=== PATIENT | female | born 1935 | race Hispanic/Latino ===

== ENCOUNTER 2020-09-11 18:07 | Inpatient (IN) | payer OTHER ==
[2020-09-11 19:12] LABS: Absolute Lymphocytes (CBC) 0.3 K/uL (0.7-4.9); Basophils % 0.2 % (0-1.3); Hematocrit 27.9 % (36.0-45.0); Lymphocytes % 1.8 % (15.3-44.8); MPV 9.4 fL (7.6-11.3); RBC Red Blood Cell Count 3.03 M/uL (3.86-4.86)
[2020-09-11 19:34] LABS: Ferritin 109.2 ng/mL (8-388)
[2020-09-11 19:40] LABS: Bilirubin Direct 0.1 mg/dL (0-0.2); Bilirubin Total 0.6 mg/dL (0.2-1.0); Potassium 4.8 mmol/L (3.5-5.1)
[2020-09-11 19:41] LABS: Albumin 2.9 g/dL (3.4-5.0); Protein, Total 6.9 g/dL (6.4-8.2)
[2020-09-11 19:44] LABS: Urine Blood 2+ (NEG); Urine Glucose NEGATIVE (NEG); Urine Protein 3+ (NEG); Urine pH 5.5 (5.0-7.0)
[2020-09-11 19:54] LABS: Urine Bacteria >50 /HPF (<20)
--- NOTE | 2020-09-11 20:04 | EDPHYS ---
Physician Documentation [facility] Name: Sasha Pate Age: 85 yrs Sex: Female : 1935 Arrival Date: 09/11/2020 Time: 18:11 Bed 4 Private MD: ED Physician Daniel Flores HPI: 09/11 18:58 This 85 yrs old Female presents to ER via Wheelchair with complaints of jr8 Abdominal Pain, Vomiting. 18:58 The patient presents with Nausea and Vomiting. Onset: The symptoms/episode jr8 began/occurred yesterday. Patient reports with Nausea and vomiting since yesterday. Her LALO reports she has extensive Vascular Hx with stent placements, HTN, DM, decreased renal function. Patient reports taking an Advil yesterday to treat a THORNE and then beginning to vomit. . Historical: - Allergies: 18:24 No Known Allergies; aa5 - PMHx: 18:24 Diabetes - NIDDM; Hypertension; Hyperlipidemia; PVD; Hypothyroidism; Renal aa5 Insufficiency; Sacral fractures; UTI; Sepsis; - PSHx: 18:24 Cholecystectomy; Left Femoral Artery Stent; Renal Artery Stent; Back Surgery; Cecal aa5 Volvulus sx; cataracts; - Immunization history:: Client reports receiving the 1st dose of the Covid vaccine. - Social history:: Smoking status: Patient reports the use of cigarette tobacco products, 5 cigarettes a day. ROS: 19:00 Cardiovascular: Negative for chest pain, palpitations, and edema, Respiratory: Negative jr8 for shortness of breath, cough, wheezing, and pleuritic chest pain, Neuro: Negative for headache, weakness, numbness, tingling, and seizure. 19:00 Abdomen/GI: Positive for nausea and vomiting. 19:00 Back: Positive for flank pain, on the left. 19:00 Skin: Positive for Exam: 19:03 Cardiovascular: Regular rate and rhythm with a normal S1 and S2. No gallops, murmurs, jr8 or rubs. Normal PMI, no JVD. No pulse deficits. Respiratory: Lungs have equal breath sounds bilaterally, clear to auscultation and percussion. No rales, rhonchi or wheezes noted. No increased work of breathing, no retractions or nasal flaring. MS/ Extremity: Pulses equal, no cyanosis. Neurovascular intact. Full, normal range of motion. Neuro: Awake and alert, GCS 15, oriented to person, place, time, and situation. Cranial nerves II-XII grossly intact. Motor strength 5/5 in all extremities. Sensory grossly intact. Cerebellar exam normal. Normal gait. 19:03 Abdomen/GI: Inspection: abdomen appears normal, Bowel sounds: active, all quadrants, Palpation: abdomen is soft and non-tender, in all quadrants. 19:03 Back: pain, that is mild, of the left mid back, CVA tenderness, is noted on the left. Vital Signs: 18:20 BP 110 / 44; Pulse 89; Resp 18 S; Temp 99.2(O); Pulse Ox 95% on R/A; Weight 60.78 kg aa5 (R); Height 5 ft. 6 in. (167.64 cm) (R); 19:21 BP 130 / 58; Pulse 80; Resp 17; Temp 98.3; Pulse Ox 100% ; rr5 20:30 BP 125 / 80; Pulse 85; Resp 17; Pulse Ox 98% ; rr5 21:50 BP 118 / 61; Pulse 70; Resp 15; Pulse Ox 98% ; Pain 8/10; rr5 22:56 BP 113 / 55; Pulse 75; Resp 16; Pulse Ox 98% ; rr5 18:20 Body Mass Index 21.63 (60.78 kg, 167.64 cm) aa5 MDM: 18:33 Patient medically screened. jr8 19:04 Data reviewed: vital signs, nurses notes, lab test result(s). Data interpreted: Cardiac jr8 monitor: rate is 89 beats/min, rhythm is regular, Pulse oximetry: on room air is 95 %. 20:03 Counseling: I had a detailed discussion with the patient and/or guardian regarding: the jr8 historical points, exam findings, and any diagnostic results supporting the discharge/admit diagnosis, lab results, radiology results, the need for further work-up and treatment in the hospital. 09/11 18:30 Order name: Basic Metabolic Panel; Complete Time: 19:45 tw4 09/11 18:30 Order name: CBC with Diff; Complete Time: 20:34 tw4 09/11 18:30 Order name: Hepatic Function; Complete Time: 19:45 tw4 09/11 18:30 Order name: Lipase; Complete Time: 19:45 tw4 09/11 18:34 Order name: Urine Microscopic Only; Complete Time: 20:03 [facility] 09/11 18:57 Order name: TIBC [facility] 09/11 18:57 Order name: Ferritin [facility] 09/11 18:57 Order name: Iron Level [facility] 09/11 18:58 Order name: Transferrin Sat/Iron Binding; Complete Time: 19:45 [facility] 09/11 18:58 Order name: Ferritin; Complete Time: 19:45 [facility] 09/11 19:13 Order name: Glucose, Ancillary Testing; Complete Time: 19:45 [facility] 09/11 19:28 Order name: Urine Dipstick--Ancillary (enter results); Complete Time: 19:46 [facility] 09/11 19:56 Order name: Uric Acid; Complete Time: 20:59 [facility] 09/11 18:30 Order name: IV Saline Lock; Complete Time: 18:53 [facility] 09/11 18:30 Order name: Labs collected and sent; Complete Time: 18:53 [facility] 09/11 18:34 Order name: Urine Dipstick-Ancillary (obtain specimen); Complete Time: 19:50 [facility] 09/11 19:56 Order name: US Rp Exam Complete; Complete Time: 20:59 [facility] 09/11 19:56 Order name: Pth,Intact; Complete Time: 21:00 [facility] 09/11 20:11 Order name: COVID-19 : Document "Date of Symptom Onset" if Symptomatic. [facility] 09/11 20:18 Order name: Urine Culture [facility] 09/11 20:28 Order name: CBC Smear Scan; Complete Time: 20:34 [facility] 09/11 20:45 Order name: CONS Physician Consult [facility] 09/11 22:22 Order name: SARS-COV-2 RT PCR; Complete Time: 22:23 [facility] Administered Medications: 20:05 Drug: NS 0.9% 500 ml Route: IV; Rate: bolus; Site: right antecubital; rr5 20:40 Follow up: Response: No adverse reaction; IV Status: Completed infusion; IV Intake: rr5 500ml 20:05 Drug: Zofran (Ondansetron) 4 mg Route: IVP; Site: right antecubital; rr5 21:05 Follow up: Response: No adverse reaction rr5 20:07 Drug: Rocephin (cefTRIAXone) 1 grams Route: IV; Rate: calculated rate; Site: right rr5 antecubital; 20:30 Follow up: Response: No adverse reaction; IV Status: Completed infusion; IV Intake: [id number] 20:38 Drug: NS 0.9% 1000 ml Route: IV; Rate: 75 ml/hr; Site: right antecubital; ea 22:36 Follow up: Response: No adverse reaction; IV Status: Completed infusion ea 22:10 Drug: Tylenol 1000 mg Route: PO; rr5 23:00 Follow up: Response: No adverse reaction ea Disposition: 09/12 18:29 Co-signature as Attending Physician, Daniel Flores MD I agree with the assessment and tw4 plan of care. Disposition: 09/11/20 20:03 Hospitalization ordered by Richard Govea for Inpatient Admission. Preliminary diagnosis are Urinary tract infection, site not specified, Acute kidney failure. - Bed requested for Telemetry/MedSurg (Inpatient). - Status is Inpatient Admission. ea - Condition is Stable. - Problem is new. - Symptoms have improved. Signatures: Dispatcher [employer] EDNY Chantal Lozoya RN Diandra Velasquez RN RN aa5 Navjot Daugherty PA PA jr8 Esther Cunha RN RN ea Wadley, Terrence, MD MD tw4 Denis Andres RN RN rr5 Corrections: (The following items were deleted from the chart) 09/11 18:58 18:58 Ferritin ordered. [facility]NY EDMS 18:58 18:58 Ferritin ordered. [facility] EDNY 22:32 20:03 Hospitalization Ordered by Richard Govea MD for Inpatient Admission. Preliminary mw diagnosis is Urinary tract infection, site not specified; Acute kidney failure. Bed requested for Telemetry/MedSurg (Inpatient). Status is Inpatient Admission. Condition is Stable. Problem is new. Symptoms have improved. jr8 23:09 22:32 09/11/2020 20:03 Hospitalization Ordered by Richard Govea MD for Inpatient ea Admission. Preliminary diagnosis is Urinary tract infection, site not specified; Acute kidney failure. Bed requested for Telemetry/MedSurg (Inpatient). Status is Inpatient Admission. Condition is Stable. Problem is new. Symptoms have improved. mw
--- NOTE | 2020-09-11 20:04 | ER ---
Nurse's Notes [facility] Name: Sasha Pate Age: 85 yrs Sex: Female : 1935 Arrival Date: 09/11/2020 Time: 18:11 Bed 4 Private MD: Diagnosis: Urinary tract infection, site not specified;Acute kidney failure Presentation: 09/11 18:20 Chief complaint: Patient states: abd discomfort and vomiting today. Pt states "I aa5 haven't eaten since yesterday". Coronavirus screen: nausea, vomiting. Ebola Screen: Patient negative for fever greater than or equal to 101.5 degrees Fahrenheit, and additional compatible Ebola Virus Disease symptoms. Initial Sepsis Screen: Does the patient meet any 2 criteria? No. Patient's initial sepsis screen is negative. Does the patient have a suspected source of infection? No. Patient's initial sepsis screen is negative. Risk Assessment: Do you want to hurt yourself or someone else? Patient reports no desire to harm self or others. Onset of symptoms was August 2020. 18:20 Method Of Arrival: Wheelchair aa5 18:20 Acuity: DEMI 3 aa5 Historical: - Allergies: 18:24 No Known Allergies; aa5 - PMHx: 18:24 Diabetes - NIDDM; Hypertension; Hyperlipidemia; PVD; Hypothyroidism; Renal aa5 Insufficiency; Sacral fractures; UTI; Sepsis; - PSHx: 18:24 Cholecystectomy; Left Femoral Artery Stent; Renal Artery Stent; Back Surgery; Cecal aa5 Volvulus sx; cataracts; - Immunization history:: Client reports receiving the 1st dose of the Covid vaccine. - Social history:: Smoking status: Patient reports the use of cigarette tobacco products, 5 cigarettes a day. Screenin:54 Abuse screen: Denies threats or abuse. Denies injuries from another. Nutritional ph screening: No deficits noted. Tuberculosis screening: No symptoms or risk factors identified. Fall Risk None identified. Assessment: 18:53 General: Appears in no apparent distress. Behavior is calm, cooperative, appropriate ph for age, Denies fever. Pain: Complains of pain in abdomen. Neuro: Level of Consciousness is awake, alert, obeys commands, Oriented to person, place, time, situation. Cardiovascular: Capillary refill < 3 seconds in bilateral fingers Patient's skin is warm and dry. Respiratory: Airway is patent Respiratory effort is even, unlabored, Respiratory pattern is regular, symmetrical. GI: Reports nausea, vomiting. Derm: Skin is healthy with good turgor, Skin is pink, warm \\T\\ dry. Musculoskeletal: Circulation, motion, and sensation intact. Range of motion: intact in all extremities. 19:40 General: Appears in no apparent distress. comfortable, Behavior is calm, cooperative, rr5 appropriate for age. Neuro: Level of Consciousness is awake, alert, obeys commands, Oriented to person, place, time. Cardiovascular: Capillary refill < 3 seconds Patient's skin is warm and dry. Respiratory: Airway is patent Respiratory effort is even, unlabored, Respiratory pattern is regular, symmetrical. GI: Abdomen is round non-distended, Abd is soft and non tender Reports lower abdominal pain, upper abdominal pain, nausea, vomiting. : No signs and/or symptoms were reported regarding the genitourinary system. EENT: No signs and/or symptoms were reported regarding the EENT system. Derm: Skin is intact, is healthy with good turgor, Skin is pink, warm \\T\\ dry. Musculoskeletal: Capillary refill < 3 seconds. 20:14 Reassessment: Patient appears in no apparent distress at this time. Patient is alert, rr5 oriented x 3, equal unlabored respirations, skin warm/dry/pink. hospitalist at bedside. 21:15 Reassessment: Patient appears in no apparent distress at this time. Patient is alert, rr5 oriented x 3, equal unlabored respirations, skin warm/dry/pink. awaiting for covid result for admission. 22:10 Reassessment: complaints of headache, ED provider aware with order made and carried out.rr5 22:10 Pain: Complains of pain in head Pain currently is 8 out of 10 on a pain scale. Quality rr5 of pain is described as aching, Pain began gradually. 23:08 Reassessment: Patient and/or family updated on plan of care and expected duration. Pain ea level reassessed. Patient is alert, oriented x 3, equal unlabored respirations, skin warm/dry/pink. Discharge instruction given to patient, verbalized the understanding of instruction. Pt left ED ambulatory tolerating well. Patient states feeling better. Vital Signs: 18:20 BP 110 / 44; Pulse 89; Resp 18 S; Temp 99.2(O); Pulse Ox 95% on R/A; Weight 60.78 kg aa5 (R); Height 5 ft. 6 in. (167.64 cm) (R); 19:21 BP 130 / 58; Pulse 80; Resp 17; Temp 98.3; Pulse Ox 100% ; rr5 20:30 BP 125 / 80; Pulse 85; Resp 17; Pulse Ox 98% ; rr5 21:50 BP 118 / 61; Pulse 70; Resp 15; Pulse Ox 98% ; Pain 8/10; rr5 22:56 BP 113 / 55; Pulse 75; Resp 16; Pulse Ox 98% ; rr5 18:20 Body Mass Index 21.63 (60.78 kg, 167.64 cm) aa5 ED Course: 18:11 Patient arrived in ED. mr 18:20 Arm band placed on. aa5 18:21 Triage completed. aa5 18:33 Navjot Daugherty PA is PHCP. jr8 18:33 Daniel Flores MD is Attending Physician. jr8 18:54 Patient has correct armband on for positive identification. Bed in low position. Call ph light in reach. Side rails up X 1. Pulse ox on. NIBP on. Door closed. Noise minimized. 19:03 Esther Cunha, RN is Primary Nurse. ea 19:11 Initial lab(s) drawn, by me, sent to lab. Inserted saline lock: 22 gauge in right 5 antecubital area, using aseptic technique. 19:12 Ferritin Sent. 5 19:12 Transferrin Sat/Iron Binding Sent. 5 19:12 Iron Level Sent. 5 19:12 Ferritin Sent. 5 19:12 TIBC Sent. 5 19:12 Basic Metabolic Panel Sent. 5 19:12 CBC with Diff Sent. 5 19:12 Hepatic Function Sent. mh5 19:13 Lipase Sent. mh5 20:03 Richard Govea MD is Hospitalizing Provider. jr8 20:36 US Rp Exam Complete In Process Unspecified. EDMS 20:40 COVID swab sent to lab. rr5 22:36 No provider procedures requiring assistance completed. Patient admitted, IV remains in ea place. Administered Medications: 20:05 Drug: NS 0.9% 500 ml Route: IV; Rate: bolus; Site: right antecubital; rr5 20:40 Follow up: Response: No adverse reaction; IV Status: Completed infusion; IV Intake: rr5 500ml 20:05 Drug: Zofran (Ondansetron) 4 mg Route: IVP; Site: right antecubital; rr5 21:05 Follow up: Response: No adverse reaction rr5 20:07 Drug: Rocephin (cefTRIAXone) 1 grams Route: IV; Rate: calculated rate; Site: right rr5 antecubital; 20:30 Follow up: Response: No adverse reaction; IV Status: Completed infusion; IV Intake: [id number] 20:38 Drug: NS 0.9% 1000 ml Route: IV; Rate: 75 ml/hr; Site: right antecubital; ea 22:36 Follow up: Response: No adverse reaction; IV Status: Completed infusion ea 22:10 Drug: Tylenol 1000 mg Route: PO; rr5 23:00 Follow up: Response: No adverse reaction ea Intake: 20:30 IV: 10ml; Total: 10ml. rr5 20:40 IV: 500ml; Total: 510ml. rr5 Outcome: 20:03 Decision to Hospitalize by Provider. jrJennifer 22:36 Instructed on the need for admit. ea 23:07 Admitted to Med/surg accompanied by tech, via stretcher, room 206, with chart, Report ea called to Receiving nurse 23:07 Condition: stable 23:09 Patient left the ED. ea Signatures: Dispatcher [employer] EDMO [employer] Yolette TangDiandra, RN RN [email or web address] Navjot Daugherty PA PA jrKellie Griffin, Jonelle Moore RN, ph Esther Pierce RN RN ea Roque, Raymond RN RN rr5
[2020-09-11] MEDS ORDERED: NA CHLORIDE 0.9% 1,000 ML ONE (20:19)
[2020-09-11] MEDS ORDERED: CEFTRIAXONE/SWI 1gm 1 GM/10 ML SYR ONE (20:19)
[2020-09-11] MEDS ORDERED: ONDANSETRON 4 MG/2 ML VIAL ONE (20:19)
[2020-09-11 20:28] LABS: Blood Morphology Comment NOT SEEN (NOT SEEN); Platelet Estimate ADEQ; White Blood Cell Scan OK (OK)
--- NOTE | 2020-09-11 20:57 | RAD REPORT ---
EXAM DESCRIPTION: US - Renal Ultrasound-Complete - 09/11/2020 8:36 pm CLINICAL HISTORY: Acute renal failure superimposed over chronic renal failure COMPARISON: None. FINDINGS: The right kidney measures 8 cm with an increased echotexture. The left kidney measures 10 cm with an increased echotexture. A 2.6 centimeters cyst Hydronephrosis is not seen. The bladder is decompressed and poorly evaluated IMPRESSION: Increased renal echotexture consistent with parenchymal disease
--- NOTE | 2020-09-11 21:18 | P.HP ---
Certification for Inpatient Patient admitted to: Inpatient With expected LOS: >2 Midnights Patient will require the following post-hospital care: None Practitioner: I am a practitioner with admitting privileges, knowledge of patient current condition, hospital course, and medical plan of care. Services: Services provided to patient in accordance with Admission requirements found in Title 42 Section 412.3 of the Code of Federal Regulations <Osbaldo Pereira - Last Filed: 09/12/20 02:39> Patient History Date of Service: 09/12/20 Reason for admission: acute on chronic renal insufficiency, UTI History of Present Illness: Ms. Pate is an 85 yo F with DM, HTN, HLD, PVD w/ femoral artery stent, h/o renal artery stent, hypothyroidism, and bilateral sacral, ischial ramus and tuberosity fractures here today for acute on chronic renal insufficiency and UTI. Last summer she was admitted to the hospital for E.coli UTI and sepsis and at this time had a GFR 28. On Monday, she had a GFR of 17. At 11pm last night she took advil for her back pain, and then began to have nausea and vomiting. She reports abdominal pain, poor appetite, weakness, and headache. She denies fever, dysuria, frequency, urgency, hematuria, diarrhea and constipation. GFR now 12. BUN 79. Cr 3.64. Glucose 220. Hemoglobin 9.1, Hematocrit 27.9. WBC 15.6. alk phos 203.urine positive for 1+ leukocytes, 2+ blood, 10-20 WBCs, bacteria. Renal ultrasound - no hydronephrosis, increased renal echotexture with parenchymal disease. - Past Medical/Surgical History -: NIDDM -: hypertension -: hyperlipidemia -: PVD -: hypothyroidism -: renal insufficiency -: bilateral sacral, ishcial ramus and tuberosity fractures -: UTI/sepsis (Ecoli) 2019 -: tubal -: galbladder surgery -: left femoral artery stent, balloon -: renal artery stent -: back surgery -: bilateral inguinal hernia repair -: bilateral cataract -: cecal volvulus surgery - Family History Mother -: Hypertension, Diabetes Father -: Hypertension, Diabetes - Social History Smoking Status: Light Tobacco smoker (1-9 cigarettes/day) Counseled patient to stop smoking for: less than 10 minutes Smoking therapy provided: Yes Patient receptive to therapy: No Alcohol use: No CD- Drugs: No Caffeine use: No Place of Residence: Home <Osbaldo Pereira - Last Filed: 09/12/20 02:39> Date of Service: 09/12/20 <GoveaRichard pardozal - Last Filed: 09/14/20 08:43> Allergies No Known Allergies Allergy (Unverified 09/11/20 21:44) Home Medications: Cefdinir [Omnicef] 300 mg PO DAILY #7 capsule 09/12/20 Levothyroxine Sodium [Levothyroxine] 50 mg PO DAILY 09/12/20 Nifedipine [Nifedipine ER] 30 mg PO BEDTIME 09/12/20 Pioglitazone HCl 45 mg PO DAILY 09/12/20 Pravastatin Sodium 10 mg PO DAILY 09/12/20 Sodium Bicarbonate 650 mg PO BID 09/12/20 Review of Systems General: Weakness, As per HPI Eyes: Unremarkable ENT: Unremarkable Respiratory: Unremarkable Cardiovascular: Unremarkable Gastrointestinal: Nausea, Vomiting, Abdominal Pain, As per HPI Genitourinary: As per HPI Musculoskeletal: Back Pain, As per HPI Integumentary: Unremarkable Neurological: Unremarkable Lymphatics: Unremarkable <Osbaldo Pereira - Last Filed: 09/12/20 02:39> Physical Examination - Vital Signs Temperature: 99.2 F Blood Pressure: 110/44 Pulse: 89 Respirations: 18 Pulse Ox (%): 95 - Physical Exam General: Alert, In no apparent distress, Oriented x3, Cooperative HEENT: Atraumatic, Normocephalic, PERRLA, Mucous membr. moist/pink, EOMI, Sclerae nonicteric Neck: Supple, 2+ carotid pulse no bruit, JVD not distended, No Thyromegaly, No LAD Respiratory: Clear to auscultation bilaterally, Normal air movement Cardiovascular: No edema, Normal pulses, Regular rate/rhythm, Normal S1 S2, No gallops, No rubs, No murmurs Capillary refill: <2 Seconds Gastrointestinal: Normal bowel sounds, Soft and benign, Non-distended, No ascites, No masses, No rebound, No guarding, Other (tenderness over left flank) Musculoskeletal: No clubbing, No swelling, No contractures, No erythema, No tenderness, No warmth Integumentary: No rashes, No breakdown, No significant lesion, No tenderness/swelling, No erythema, No warmth, No cyanosis Neurological: Normal speech, Normal strength at 5/5 x4 extr, Normal tone, Sensation intact, Cranial nerves 3-12 intact, Normal affect - Studies Laboratory Data (last 24 hrs) 09/11/20 18:50: Uric Acid 8.0 H 09/11/20 18:50: WBC 15.60 H, Hgb 9.1 L, Hct 27.9 L, Plt Count 198 09/11/20 18:50: Sodium 137, Potassium 4.8, BUN 79 H, Creatinine 3.64 H, Glucose 220 H, Total Bilirubin 0.6, AST 12 L, ALT 13, Alkaline Phosphatase 203 H, Lipase 85 <Osbaldo Pereira - Last Filed: 09/12/20 02:39> - Studies Microbiology Data (last 24 hrs): 09/11/20 19:20 Clean Catch Urine [place] Count - Final >100,000 CFU/ML. 09/11/20 19:20 Clean Catch Urine - Final Enterobacter Aerogenes <Richard Govea - Last Filed: 09/14/20 08:43> Assessment and Plan - Problems (Diagnosis) (1) Renal insufficiency Current Visit: Yes Status: Acute Plan: -nephrology consulted, likely candidate for dialysis now -renal ultrasound: Increased renal echotexture consistent with parenchymal disease -Summer GFR 28, Monday GFR 17, GFR now 12 -Cr 3.64, BUN 79, uric acid 8, PTH 101 -vitamin D 125, and urine albumin:Cr pending -gentul fluid hydration, NS 75cc/hr -takes sodium bicarb 10g 1/2 BID at home (2) UTI (urinary tract infection) Current Visit: Yes Status: Acute Plan: -urinalysis positive for blood, leukocytes, WBC, bacteria -ceftriaxone IV daily -urine culture and colony count pending Qualifiers: Urinary tract infection type: site unspecified Hematuria presence: without hematuria Qualified Code(s): N39.0 - Urinary tract infection, site not specified (3) Type 2 diabetes mellitus Current Visit: Yes Status: Acute Plan: mild sliding scale and q6hr BG checks Qualifiers: Diabetes mellitus 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 hold medications until nephrology recs given. Qualifiers: Hypertension type: essential hypertension Qualified Code(s): I10 - Essential (primary) hypertension (5) Hyperlipidemia Current Visit: Yes Status: Acute Plan: stable continue to monitor Qualifiers: Hyperlipidemia type: other hyperlipidemia Qualified Code(s): E78.49 - Other hyperlipidemia; E78.4 - Other hyperlipidemia (6) Peripheral vascular disease Current Visit: Yes Status: Acute Plan: stable, continue to monitor (7) Hypothyroidism Current Visit: Yes Status: Acute Plan: stable, continue to monitor. Qualifiers: Hypothyroidism type: other Qualified Code(s): E03.8 - Other specified hypothyroidism (8) Anemia of chronic disease Current Visit: Yes Status: Chronic Plan: -Hgb 9.1, HCt 27.9 -takes ferrous sulfate at home -currently stable Discharge Plan: Home Plan to discharge in: 48 Hours - Advance Directives Does patient have a Living Will: No Does patient have a Durable POA for Healthcare: No - Code Status/Comfort Care Code Status Assessed: Yes (full code) Critical Care: No Time Spent Managing Pts Care (In Minutes): 70 <Osbaldo Pereira - Last Filed: 09/12/20 02:39> Date of Service: 09/13/20 Chart reviewed and agree with plan of care as mentioned above <Richard Govea - Last Filed: 09/14/20 08:43>
[2020-09-11] MEDS ORDERED: ACETAMINOPHEN 500 MG TAB ONE (22:51)
[2020-09-11] MEDS: INSULIN -REGULAR HUMAN 50 UNIT/0.5 ML ML SQ SCH (23:15)
[2020-09-11 23:37] VITALS: BMI 21.8
[2020-09-12] MEDS: NA CHLORIDE 0.9% 1,000 ML IV SCH ×3 (00:28→18:38)
[2020-09-12 06:45] LABS: Absolute Lymphocytes (CBC) 0.5 K/uL (0.7-4.9); Basophils % 0.2 % (0-1.3); Hematocrit 24.1 % (36.0-45.0); Lymphocytes % 2.9 % (15.3-44.8); MPV 9.4 fL (7.6-11.3); RBC Red Blood Cell Count 2.61 M/uL (3.86-4.86)
[2020-09-12 06:56] LABS: Urine Appearance CLOUDY; Urine Bilirubin NEGATIVE (NEG); Urine Blood 2+ (NEG); Urine Color YELLOW; Urine Glucose NEGATIVE (NEG); Urine Protein 2+ (NEG); Urine Specific Gravity 1.015 (1.005-1.030); Urine Urobilinogen 0.2 mg/dL (0.2-1.0); Urine pH 5.5 (5.0-7.0)
[2020-09-12 06:58] LABS: Urine Microscopic Reflex ORDER UMIC
[2020-09-12 07:05] LABS: Albumin 2.5 g/dL (3.4-5.0); Bilirubin Total 0.4 mg/dL (0.2-1.0); Potassium 5.1 mmol/L (3.5-5.1); Protein, Total 6.1 g/dL (6.4-8.2)
[2020-09-12 07:10] LABS: Thyroid Stimulating Hormone 0.701 uIU/mL (0.360-3.740); Uric Acid 7.8 mg/dL (2.6-6.0)
[2020-09-12 07:27] LABS: Urine Bacteria >50 /HPF (<20)
[2020-09-12] MEDS ORDERED: CEFTRIAXONE/SWI 1gm 1 GM/50 ML SYR IV SCH (09:00)
[2020-09-12] MEDS: HEPARIN 5000 UNIT/ML 1 ML VIAL SQ SCH ×2 (09:27→20:13)
[2020-09-12] MEDS: INSULIN -REGULAR HUMAN 50 UNIT/0.5 ML ML SQ SCH ×4 (09:27→20:14)
[2020-09-12] MEDS: CEFTRIAXONE/SWI 1gm 1 GM/10 ML SYR IV SCH (09:27)
--- NOTE | 2020-09-12 15:30 | P.DS ---
Discharge Date: 09/12/20 Disposition: ROUTINE DISCHARGE Discharge Condition: GOOD Reason for Admission: acute on chronic renal insufficiency, UTI Vital Signs/Physical Exam: Temp Pulse Resp BP Pulse Ox 98.4 F 68 20 114/56 L 98 09/12/20 12:00 09/12/20 12:00 09/12/20 12:00 09/12/20 12:00 09/12/20 12:00 General: Alert, In no apparent distress, Oriented x3 Laboratory Data at Discharge: WBC 18.50 K/uL (4.3-10.9) H D 09/12/20 06:19 Hgb 8.1 g/dL (12.0-15.0) L 09/12/20 06:19 Hct 24.1 % (36.0-45.0) L 09/12/20 06:19 Plt Count 153 K/uL (152-406) D 09/12/20 06:19 Sodium 138 mmol/L (136-145) 09/12/20 06:19 Potassium 5.1 mmol/L (3.5-5.1) 09/12/20 06:19 BUN 84 mg/dL (7-18) H 09/12/20 06:19 Creatinine 3.95 mg/dL (0.55-1.3) H 09/12/20 06:19 Glucose 177 mg/dL (74-106) H 09/12/20 06:19 Uric Acid 7.8 mg/dL (2.6-6.0) H 09/12/20 06:19 Total Bilirubin 0.4 mg/dL (0.2-1.0) 09/12/20 06:19 AST 15 U/L (15-37) 09/12/20 06:19 ALT 14 U/L (12-78) 09/12/20 06:19 Alkaline Phosphatase 172 U/L (45-117) H 09/12/20 06:19 Lipase 85 U/L (73-393) 09/11/20 18:50 Home Medications: Cefdinir [Omnicef] 300 mg PO DAILY #7 capsule 09/12/20 Levothyroxine Sodium [Levothyroxine] 50 mg PO DAILY 09/12/20 Nifedipine [Nifedipine ER] 30 mg PO BEDTIME 09/12/20 Pioglitazone HCl 45 mg PO DAILY 09/12/20 Pravastatin Sodium 10 mg PO DAILY 09/12/20 Sodium Bicarbonate 650 mg PO BID 09/12/20 New Medications: Cefdinir [Omnicef] 300 mg PO DAILY #7 capsule Physician Discharge Instructions: OK TO DC IV AND DC HOME FOLLOW-UP WITH PCP IN 1-2 WEEKS FOLLOW-UP NEPHROLOGY IN 1-[address] OLEA AT [phone] IF ANY QUESTIONS REGARDING HOSPITAL STAY RETURN TO THE ER IF SYMPTOMS WORSENS Diet: Renal Activity: Fall precautions Followup: OOT,OOT [Primary Care Provider] -
--- NOTE | 2020-09-12 17:42 | P.CNS ---
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 pt was not taking NSAID or had any contrast exposure recently or took Abx in ER 12. BUN 79. Cr 3.64. Glucose 220. Hemoglobin 9.1, Hematocrit 27.9. WBC 15.6. alk phos 203.urine positive for 1+ leukocytes, 2+ blood, 10-20 WBCs, bacteria. Renal ultrasound - no hydronephrosis, increased renal echotexture with parenchymal disease. Review of Systems: Head and Neck: No red eye. No ear pain. GI: nausea and diarrhea improved : No polyuria. No dysuria. No hematuria. 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 Cardiovascular: denied chest pain or palpitation Endocrine: No polydipsia. Skin: No rash. Neuro: denied neuropathy. Musculoskeletal: denied joint pain Physical exam general: AAOX3, NAD , obese Neck; Supple, No elevated JVD hear: RRR, normal S1,2 no murmur or rub Chest: CTAB, no rales or wheezes Abdomen: Soft , Nt Extremities No edema or ulcer Petar on CKD IV vs progressive CKD UA with many RBC , hav proteinuria cont IVF USL No hydro renal biopsy on Monday if cr cont to trend up then pt might to initiate renal replacement therapy this admission avoid NSAID an contarst F/U serology W/U DM SSI HTN Cont current meds cont to hold Irbesartan, lasix and HCTZ anemia of chronic disease will give epogen X1 will sned for anemia W/U F/U SPEP/UPEP total time spent 65min Allergies No Known Allergies Allergy (Unverified 09/11/20 21:44) Home Medications: Cefdinir [Omnicef] 300 mg PO DAILY #7 capsule 09/12/20 Levothyroxine Sodium [Levothyroxine] 50 mg PO DAILY 09/12/20 Nifedipine [Nifedipine ER] 30 mg PO BEDTIME 09/12/20 Pioglitazone HCl 45 mg PO DAILY 09/12/20 Pravastatin Sodium 10 mg PO DAILY 09/12/20 Sodium Bicarbonate 650 mg PO BID 09/12/20 - Past Medical/Surgical History -: NIDDM -: hypertension -: hyperlipidemia -: PVD -: hypothyroidism -: renal insufficiency -: bilateral sacral, ishcial ramus and tuberosity fractures -: UTI/sepsis (Ecoli) 2020 -: tubal -: galbladder surgery -: left femoral artery stent, balloon -: renal artery stent -: back surgery -: bilateral inguinal hernia repair -: bilateral cataract -: cecal volvulus surgery - Family History Mother Medical History: Hypertension, Diabetes Father Medical History: Hypertension, Diabetes - Social History Alcohol use: No CD- Drugs: No Caffeine use: No Place of Residence: Home Physical Examination Temp Pulse Resp BP Pulse Ox 98.4 F 68 20 114/56 L 98 09/12/20 12:00 09/12/20 12:00 09/12/20 12:00 09/12/20 12:00 09/12/20 12:00 Laboratory Data (last 24 hrs) 09/11/20 18:50: Uric Acid 8.0 H 09/11/20 18:50: WBC 15.60 H, Hgb 9.1 L, Hct 27.9 L, Plt Count 198 09/11/20 18:50: Sodium 137, Potassium 4.8, BUN 79 H, Creatinine 3.64 H, Glucose 220 H, Total Bilirubin 0.6, AST 12 L, ALT 13, Alkaline Phosphatase 203 H, Lipase 85
[2020-09-12] MEDS ORDERED: EPOETIN 4,000 UNIT/ML VIAL IV ONE (18:00)
[2020-09-12] MEDS ORDERED: EPOETIN ALFA-EPBX 10,000 UNIT/ML VIAL ONE (18:25)
[2020-09-12] MEDS: EPOETIN ALFA-EPBX 10,000 UNIT/ML VIAL SQ SCH (19:02)
[2020-09-12] MEDS: SODIUM BICARB 325 MG TAB PO SCH (20:12)
[2020-09-12] MEDS: ACETAMINOPHEN 500 MG TAB PO PRN (20:12)
[2020-09-12] MEDS: NIFEDIPINE XL 30 MG TABLET PO SCH (20:14)
[2020-09-13] MEDS: NA CHLORIDE 0.9% 1,000 ML IV SCH ×2 (01:55→09:30)
[2020-09-13 06:00] LABS: Urine Protein/Creatinine Ratio 1.53 ratio (<0.15)
[2020-09-13] MEDS: INSULIN -REGULAR HUMAN 50 UNIT/0.5 ML ML SQ SCH ×4 (07:30→20:29)
[2020-09-13 08:35] LABS: Ferritin 120.8 ng/mL (8-388); Folic Acid, (Folate) 10.2 ng/mL (3.1-17.5)
[2020-09-13] MEDS ORDERED: LEVOTHYROXINE SOD 0.05 MG TABLET PO SCH ×2 (09:00→10:45)
[2020-09-13] MEDS: CEFTRIAXONE/SWI 1gm 1 GM/10 ML SYR IV SCH (09:28)
[2020-09-13] MEDS: HEPARIN 5000 UNIT/ML 1 ML VIAL SQ SCH ×2 (09:29→20:29)
[2020-09-13] MEDS: SODIUM BICARB 325 MG TAB PO SCH ×2 (09:29→20:28)
[2020-09-13] MEDS: ATORVASTATIN 10 MG TAB PO SCH (09:29)
[2020-09-13 11:04] LABS: Bilirubin Total 0.3 mg/dL (0.2-1.0); Potassium 4.8 mmol/L (3.5-5.1); Protein, Total 5.6 g/dL (6.4-8.2)
--- NOTE | 2020-09-13 12:48 | P.PN ---
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 pt was not taking NSAID or had any contrast exposure recently or took Abx in ER 12. BUN 79. Cr 3.64. Glucose 220. Hemoglobin 9.1, Hematocrit 27.9. WBC 15.6. alk phos 203.urine positive for 1+ leukocytes, 2+ blood, 10-20 WBCs, bacteria. Renal ultrasound - no hydronephrosis, increased renal echotexture with parenchymal disease. Today Cr up to 4.4 will hold IVF will start dialysis tomorrow for worsening renal function and to reduce risk of uremic bleeding will arrange for Biopsy after HD Physical exam general: AAOX3, NAD , obese Neck; Supple, No elevated JVD hear: RRR, normal S1,2 no murmur or rub Chest: CTAB, no rales or wheezes Abdomen: Soft , Nt Extremities No edema or ulcer Petar on CKD IV vs progressive CKD IV worsening renal function is possibly due to RPGN vs porgressive CKD UA with many RBC , hav proteinuria cont IVF US: No hydro will start dialysis tomorrow for worsening renal function and to reduce risk of uremic bleeding will arrange for Biopsy after HD DM SSI HTN Cont current meds cont to hold Irbesartan, lasix and HCTZ anemia of chronic disease will give epogen X1 will start IV iron F/U SPEP/UPEP total time spent 45min Physical Examination - Vital Signs Temperature: 98.9 F Blood Pressure: 121/57 Pulse: 73 Respirations: 16 Pulse Ox (%): 95 - Studies Microbiology Data (last 24 hrs): 09/11/20 19:20 Clean Catch Urine [place] Count - Final >100,000 CFU/ML. 09/11/20 19:20 Clean Catch Urine - Final Enterobacter Aerogenes
[2020-09-13] MEDS: SOD FERRIC GLUC COMPLX/SUCROSE 125 MG in NA CHLORIDE 0.9% 100 ML IV SCH (14:01)
[2020-09-13 14:32] LABS: Hematocrit 23.9 % (36.0-45.0); RBC Red Blood Cell Count 2.56 M/uL (3.86-4.86)
[2020-09-13 14:33] LABS: Absolute Lymphocytes (CBC) 0.5 K/uL (0.7-4.9); Basophils % 0.3 % (0-1.3); Lymphocytes % 3.3 % (15.3-44.8); MPV 10.2 fL (7.6-11.3)
[2020-09-13] MEDS ORDERED: MORPHINE 2 MG/ML SYR IV PRN (15:37)
[2020-09-13] MEDS: CODEINE 30MG/APAP 300MG TAB PO PRN (15:50)
[2020-09-13] MEDS: EPOETIN ALFA-EPBX 10,000 UNIT/ML VIAL SQ SCH (19:30)
[2020-09-13] MEDS: ACETAMINOPHEN 500 MG TAB PO PRN (20:28)
[2020-09-13] MEDS: NIFEDIPINE XL 30 MG TABLET PO SCH (20:52)
[2020-09-14] MEDS: LEVOTHYROXINE SOD 0.05 MG TABLET PO SCH (05:19)
[2020-09-14 06:32] LABS: Albumin 1.9 g/dL (3.4-5.0); Bilirubin Total 0.2 mg/dL (0.2-1.0); Potassium 4.5 mmol/L (3.5-5.1); Protein, Total 5.3 g/dL (6.4-8.2)
[2020-09-14 06:40] LABS: Absolute Lymphocytes (CBC) 0.6 K/uL (0.7-4.9); Basophils % 0.3 % (0-1.3); Hematocrit 22.2 % (36.0-45.0); Lymphocytes % 5.3 % (15.3-44.8); MPV 10.3 fL (7.6-11.3); RBC Red Blood Cell Count 2.39 M/uL (3.86-4.86)
[2020-09-14 07:30] LABS: Blood Morphology Comment NOT SEEN (NOT SEEN); Platelet Estimate ADEQ
[2020-09-14] MEDS: INSULIN -REGULAR HUMAN 50 UNIT/0.5 ML ML SQ SCH ×4 (07:30→21:00)
[2020-09-14] MEDS: CEFTRIAXONE/SWI 1gm 1 GM/10 ML SYR IV SCH (08:34)
[2020-09-14] MEDS: HEPARIN 5000 UNIT/ML 1 ML VIAL SQ SCH ×2 (08:35→21:15)
[2020-09-14] MEDS: ATORVASTATIN 10 MG TAB PO SCH (08:35)
--- NOTE | 2020-09-14 08:47 | P.PN ---
Subjective Date of Service: 09/13/20 Subjective: No new changes, No C/O voiced patient is having some abdominal pain. Patient discharge was held yesterday. I was not made aware until I saw the patient on the list this morning. Patient will be worked up with Nephrology. Anticipate dialysis With dialysis catheter placement tomorrow and possible biopsy Monday Review of Systems 10-point ROS is otherwise unremarkable Physical Examination - Vital Signs Temperature: 98.5 F Blood Pressure: 120/57 Pulse: 69 Respirations: 20 Pulse Ox (%): 92 - Physical Exam General: Alert, In no apparent distress, Oriented x3 Respiratory: Clear to auscultation bilaterally, Normal air movement Cardiovascular: Regular rate/rhythm, Normal S1 S2 Gastrointestinal: Normal bowel sounds, Tenderness Musculoskeletal: No tenderness Integumentary: No rashes Neurological: Normal speech, Normal tone, Normal affect Lymphatics: No axilla or inguinal lymphadenopathy - Studies Microbiology Data (last 24 hrs): 09/11/20 19:20 Clean Catch Urine [place] Count - Final >100,000 CFU/ML. 09/11/20 19:20 Clean Catch Urine - Final Enterobacter Aerogenes Medications List Reviewed: Yes Assessment & Plan - Problems (Diagnosis) (1) ESRD (end stage renal disease) Current Visit: Yes Status: Acute (2) Abdominal pain Current Visit: Yes Status: Acute (3) Hyperlipidemia Current Visit: Yes Status: Acute Qualifiers: Hyperlipidemia type: other hyperlipidemia Qualified Code(s): E78.49 - Other hyperlipidemia; E78.4 - Other hyperlipidemia (4) Hypertension Current Visit: Yes Status: Acute Qualifiers: Hypertension type: essential hypertension Qualified Code(s): I10 - Essential (primary) hypertension (5) Hypothyroidism Current Visit: Yes Status: Acute Qualifiers: Hypothyroidism type: other Qualified Code(s): E03.8 - Other specified hypothyroidism (6) Peripheral vascular disease Current Visit: Yes Status: Acute (7) Sacral fracture Current Visit: Yes Status: Acute (8) Type 2 diabetes mellitus Current Visit: Yes Status: Acute Qualifiers: Diabetes mellitus jail insulin use: 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 Diabetes mellitus complication status: with kidney complications Diabetes mellitus complication detail: with chronic kidney disease Chronic kidney disease stage: stage 5, not on chronic dialysis Qualified Code(s): E11.22 - Type 2 diabetes mellitus with diabetic chronic kidney disease; N18.5 - Chronic kidney disease, stage 5 (9) UTI (urinary tract infection) Current Visit: Yes Status: Acute Qualifiers: Urinary tract infection type: site unspecified Hematuria presence: without hematuria Qualified Code(s): N39.0 - Urinary tract infection, site not specified (10) Anemia of chronic disease Current Visit: Yes Status: Chronic - Plan PLAN: 1. plan to arrange for hemodialysis. NPO after midnight. Hemodialysis catheter in the morning. Will start dialyzing Monday and Monday and renal biopsy on Monday. 2. KUB 3. IV abx 4. strict BS and BP control 5. DVT prophylaxis Discharge Plan: Home Plan to discharge in: Greater than 2 days - Advance Directives Does patient have a Living Will: No Does patient have a Durable POA for Healthcare: No - Code Status/Comfort Care Code Status Assessed: Yes Code Status: Full Code Critical Care: No Time Spent Managing PTS Care (In Minutes): 35
--- NOTE | 2020-09-14 08:49 | P.PN ---
Date of Service: 09/12/20 Subjective Patient to be discharged today in outpatient follow-up with Nephrology Review of Systems 10-point ROS is otherwise unremarkable Physical Examination - Vital Signs reviewed - Physical Exam General: Alert, In no apparent distress, Oriented x3 Assessment & Plan - Problems (Diagnosis) (1) ESRD (end stage renal disease) Current Visit: Yes Status: Acute (2) Abdominal pain Current Visit: Yes Status: Acute (3) Hyperlipidemia Current Visit: Yes Status: Acute Qualifiers: Hyperlipidemia type: other hyperlipidemia Qualified Code(s): E78.49 - Other hyperlipidemia; E78.4 - Other hyperlipidemia (4) Hypertension Current Visit: Yes Status: Acute Qualifiers: Hypertension type: essential hypertension Qualified Code(s): I10 - Essential (primary) hypertension (5) Hypothyroidism Current Visit: Yes Status: Acute Qualifiers: Hypothyroidism type: other Qualified Code(s): E03.8 - Other specified hypothyroidism (6) Peripheral vascular disease Current Visit: Yes Status: Acute (7) Sacral fracture Current Visit: Yes Status: Acute (8) Type 2 diabetes mellitus Current Visit: Yes Status: Acute Qualifiers: Diabetes mellitus senior care insulin use: without senior care use Diabetes mellitus complication status: with kidney complications Diabetes mellitus complication detail: with chronic kidney disease Chronic kidney disease stage: stage 5, not on chronic dialysis Qualified Code(s): E11.22 - Type 2 diabetes mellitus with diabetic chronic kidney disease; N18.5 - Chronic kidney disease, stage 5 (9) UTI (urinary tract infection) Current Visit: Yes Status: Acute Qualifiers: Urinary tract infection type: site unspecified Hematuria presence: without hematuria Qualified Code(s): N39.0 - Urinary tract infection, site not specified (10) Anemia of chronic disease Current Visit: Yes Status: Chronic - Plan PLAN: 1. plan was to discharge patient and they will follow up with their transfer clerk in [facility]. Patient will need to get labs repeated. Continue with IV antibiotic therapy. Continue outpatient follow-up as mentioned above. Patient discharge was held and I was not notified on 09/12/20 so this is an addendum progress note.
[2020-09-14] MEDS: SOD FERRIC GLUC COMPLX/SUCROSE 125 MG in NA CHLORIDE 0.9% 100 ML IV SCH (08:59)
[2020-09-14] MEDS ORDERED: SOD FERRIC GLUC COMPLX/SUCROSE 125 MG in NA CHLORIDE 0.9% 100 ML IV SCH (09:00)
[2020-09-14] MEDS: SODIUM BICARB 325 MG TAB PO SCH (09:00)
[2020-09-14 09:16] LABS: Protime INR 0.86
[2020-09-14] MEDS ORDERED: NA CHLORIDE 0.9% 500 ML ONE (10:02)
[2020-09-14] MEDS ORDERED: NA CHLORIDE 0.9% 0 ML ONE (10:04)
[2020-09-14] MEDS ORDERED: LIDOCAINE 1% MPF 30 ML VIAL ONE (10:21)
[2020-09-14] MEDS ORDERED: NS 0.9% VIAL 10 ML ONE (10:21)
[2020-09-14] MEDS ORDERED: NA CHLORIDE 0.9% 100 ML IV ONE (10:22)
[2020-09-14] MEDS ORDERED: FENTANYL CITR 100 MCG/2 ML ONE ×2 (11:05→11:11)
[2020-09-14] MEDS ORDERED: propofoL 200 MG/20 ML VIAL IV ONE ×3 (11:05→11:16)
[2020-09-14] MEDS ORDERED: LIDOCAINE 1% MPF 5 ML VIAL ONE (11:06)
[2020-09-14] MEDS ORDERED: MIDAZOLAM HCL 2 MG/2 ML INJ ONE (11:11)
[2020-09-14] MEDS ORDERED: LIDOCAINE 1% MPF 2 ML AMPULE ONE (11:11)
[2020-09-14] MEDS: HEPARIN 5000 UNIT/ML 1 ML VIAL ONE ×2 (11:33→11:35)
--- NOTE | 2020-09-14 11:39 | P.PN ---
Subjective Date of Service: 09/14/20 Primary Care Provider: Darin Stearns Chief Complaint: acute on chronic renal insufficiency, UTI Subjective: Other (Patient stable today. Patient to have dialysis catheter placed today with dialysis.) Physical Examination - Vital Signs Temperature: 98.5 F Blood Pressure: 120/57 Pulse: 69 Respirations: 20 Pulse Ox (%): 92 - Studies Microbiology Data (last 24 hrs): 09/11/20 19:20 Clean Catch Urine [place] Count - Final >100,000 CFU/ML. 09/11/20 19:20 Clean Catch Urine - Final Enterobacter Aerogenes Medications List Reviewed: Yes Assessment & Plan Discharge Plan: Home Plan to discharge in: 72 Hours Physician Review Additional Text: Physical exam: Patient alert, cooperative. No significant distress noted at bedside. Heart: Regular rate and rhythm Lungs: Clear to auscultation Abdomen: Soft nontender nondistended Extremities: Good range of motion to the upper lower extremities Impression: Acute on chronic renal disease stage 5 now with end-stage renal disease to start hemodialysis UTI, urine culture positive for Enterobacter Hypertension Diabetes mellitus type 2 Hypothyroidism Hyperlipidemia Recent sacral fracture Anemia chronic disease Plan: Acute on chronic renal disease stage 5 now with end-stage renal disease to start hemodialysis: Patient to have dialysis catheter placed today. Suspect dialysis to start thereafter. Patient to have radiology assisted kidney biopsy on Monday. Social work to work on outpatient hemodialysis to be done in [place], [place]. This is for the patient lives. Will discuss with social work msw. Will also discuss with nephrology. Plan of care discussed with patient and daughter who was at present at bedside. UTI, urine culture positive for enterobacter: Will change to oral Augmentin. Will treat for 7 days. Hypertension: Continue blood pressure medication. Blood pressure controlled. Diabetes mellitus type 2: Hold Actos. Will check A1c. Continue Accu-Cheks. Sliding scale in place. Will determine what patient will require discharge. Hypothyroidism: Continue medication Hyperlipidemia: Continue medication Recent sacral fracture: Patient plans to do outpatient physical therapy. Patient able to ambulate well. No need for home health/physical therapy. Anemia of chronic disease: Continue with Epogen. Maintain hemoglobin above 7.0. May require blood transfusion if hemoglobin below 7.0. Time Spent Managing Pts Care (In Minutes): 55
--- NOTE | 2020-09-14 11:45 | P.BOP ---
Preoperative diagnosis: ESRD Postoperative diagnosis: same Primary procedure: 1. Placement of right jugular tunneled Hemodyalisis catheter Secondary procedure: 2. Interpretation of fluoroscopy Other procedure(s): 3. right neck ultrasound Estimated blood loss: <10cc Specimen: none Findings: as above Anesthesia: MAC Complications: None Transferred to: Recovery Room Condition: Good
--- NOTE | 2020-09-14 12:00 | RAD REPORT ---
EXAM DESCRIPTION: RAD - Fluoroscopy <1 Hour - 09/14/2020 11:51 am FINDINGS: There were 8 portable C-arm views submitted from a fluoroscopic assisted placement of a he modialysis catheter. No suspicious or unexpected finding. Fluoro time was 0.4 minutes. Cumulative dose was 6.76 mGy.
--- NOTE | 2020-09-14 12:11 | OP ---
Date of Procedure: 09/14/2020 Surgeon: Gallo Rodriguez MD Preoperative Diagnosis: End-stage renal disease. Postoperative Diagnosis: End-stage renal disease. Procedures Performed: 1.Placement of a right jugular tunneled hemodialysis catheter. 2.Interpretation of fluoroscopy. 3.Right neck ultrasound. Estimated Blood Loss: Less than 10 mL. Anesthesia: MAC plus local. Indications: This is a case of an 85-year-old patient who needs a hemodialysis catheter for hemodial ysis. The benefits, alternatives, and risks were fully explained to the patient and the family which include, but not limited to infection, bleeding, damage to adjacent structures, anesthesia complicat ion, pneumothorax, hemothorax, DVTs, PEs, NV and even . She also understands this may not relie ve any symptoms. She might need more than one surgical intervention. Consent was signed. They also understands this is a temporary catheter. If decision is made to continue hemodialysis, she has to find a vascular surgeon of her preference who do peripheral hemodialysis catheter for more permanent options. She understood. Description Of Procedure: The patient was brought to the operating room, placed in supine position. Anesthesia was done without complication. A time-out was called. Right neck and chest were prepped and draped in sterile fashion. Ultrasound of the neck was done looking at viable compressible jugul ar. After that, the patient was placed in Trendelenburg position. A right neck ultrasound was done once again confirming the findings and then also for placement of a catheter in the right internal ju gular vein at the first attempt. Guidewire was passed through, got into superior vena cava using flu oroscopy. Needle was removed. A small incision was placed in the right upper chest and we tunneled the catheter to meet that incision in the right upper neck. Serial dilators were done until we had i ntroducer sheath under fluoroscopy. Then, after that, the catheter was placed and an introducer munoz th was peeled off. The catheter showed excellent backflow and inflow. The line was secured in place with 3-0 nylon and covered with sterile dressings. The patient tolerated the procedure well. The p atient was sent to recovery in stable condition. The patient will be discharged. The patient will b e moved back to the floor after the x-ray is done. KARLEY/SANDRA Voice ID: [id number] Report ID: [id number]
[2020-09-14] MEDS ORDERED: ONDANSETRON 4 MG/2 ML VIAL ONE (12:17)
[2020-09-14] MEDS ORDERED: MORPHINE 4 MG/ML SYR ONE (12:18)
--- NOTE | 2020-09-14 12:38 | RAD REPORT ---
EXAM DESCRIPTION: RAD - Chest Single View - 09/14/2020 12:18 pm CLINICAL HISTORY: S/P HEMODIALYSIS CATH PLACEMENT COMPARISON: No comparable examination TECHNIQUE: AP portable chest image was obtained 09/14/2020 12:18 pm . FINDINGS: Right-sided double-lumen hemodialysis catheter is in place. Long and short arm of the cath eter are in the mid SVC. There is no pneumothorax. Patient has extensive interstitial lung disease that matches prior imaging. Heart and vasculature are normal. No pleural fluid collection. No acute bony abnormality seen. No acute aortic findings suspec arjun. IMPRESSION: Right-sided hemodialysis catheter in good position. No pneumothorax.
[2020-09-14] MEDS ORDERED: NA CHLORIDE 0.9% 100 ML ONE (14:44)
[2020-09-14] MEDS: ACETAMINOPHEN 500 MG TAB PO PRN (16:35)
--- NOTE | 2020-09-14 16:40 | RAD REPORT ---
EXAM DESCRIPTION: RAD - Abdomen 1 View (KUB) - 09/13/2020 9:05 pm CLINICAL HISTORY: Abdominal pain. COMPARISON: None. TECHNIQUE: Single view supine abdominal radiographs. FINDINGS: Nonobstructive bowel gas pattern. Estimated moderate amount of fecal material in the colon . No evidence of free air by supine technique. Moderate interstitial thickening in the visualized gareth gs. Osteopenia, with vertebroplasty cement at L2. Surgical clips in the left inguinal region. Right u pper abdomen surgical clips. IMPRESSION: 1. Nonobstructive bowel gas pattern. Estimated moderate amount of fecal material in th e colon. 2. Moderate interstitial thickening in the visualized lungs. Electronically signed by: Arielle Faustin MD 09/13/2020 10:22 PM CDT Due to temporary technical issues with the PACS/Fluency reporting system, reports are being signed by the in house radiologists without review as a courtesy to insure prompt reporting. The interpreting radiologist is fully responsible for the content of the report.
[2020-09-14 20:04] LABS: Hematocrit 25.1 % (36.0-45.0)
[2020-09-14] MEDS: CODEINE 30MG/APAP 300MG TAB PO PRN (21:13)
[2020-09-14] MEDS: NIFEDIPINE XL 30 MG TABLET PO SCH (21:14)
[2020-09-14] MEDS: AMOX/CLAV 200 MG/5 ML ORAL SUSP (100 ML BTL) PO SCH (21:14)
[2020-09-14] MEDS ORDERED: BISACODYL E.C. 5 MG TAB PO ONE (21:38)
--- NOTE | 2020-09-15 02:13 | PN ---
Date of Progress Note: 09/14/2020 Chief Complaint: Acute on chronic kidney injury, urinary tract infection. Subjective: The patient is an 85-year-old woman with past medical history of diabetic kidney disease , stage 4 chronic kidney disease. 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 The nimisha ent previously was found to have renal artery stenosis and had a stent placement. She has diabetic k idney disease, hypertension, hyperlipidemia, history of peripheral vascular disease with femoral shazia ry stent. The patient was admitted for vomiting and diarrhea. Labs revealed GFR of 12, creatinine 3 .4. Creatinine level declined. GFR declined from 28 about 6 weeks ago to 12 during this admission. The patient denies nonsteroidal anti-inflammatory medication. Denies antibiotics exposure. Serolog y workup is pending to screen for possible vasculitis. Plan is to schedule biopsy and biopsy can be done on Monday. Renal ultrasound did not show hydronephrosis. There is increased echotexture with parenchymal renal disease. Objective: The patient has a catheter in place. She is complaining of some nausea. She is not in r espiratory distress. Answered few questions. Impression And Plan: 1.Acute on chronic kidney injury. Dialysis has been started today. Worsening of the renal function , possible rapidly progressive glomerulonephritis versus progressive chronic kidney disease. Continu e mild hydration. The patient is admitted for nausea, vomiting, and diarrhea. Workup was started by primary team to rule out C. diff colitis. 2.Continue dialysis to obtain metabolic clearance, control azotemia. Monitor phosphorus level. 3.Patient may need a kidney biopsy during this admission. Serology workup is pending. EB/MODL Voice ID: [id number] Report ID: [id number]
[2020-09-15] MEDS: LEVOTHYROXINE SOD 0.05 MG TABLET PO SCH (05:23)
[2020-09-15 06:31] LABS: Absolute Lymphocytes (CBC) 0.6 K/uL (0.7-4.9); Basophils % 0.4 % (0-1.3); Hematocrit 24.3 % (36.0-45.0); Lymphocytes % 7.6 % (15.3-44.8); MPV 9.8 fL (7.6-11.3); RBC Red Blood Cell Count 2.66 M/uL (3.86-4.86)
[2020-09-15 06:44] LABS: Magnesium 2.2 mg/dL (1.8-2.4); Potassium 4.3 mmol/L (3.5-5.1)
[2020-09-15] MEDS: INSULIN -REGULAR HUMAN 50 UNIT/0.5 ML ML SQ SCH ×4 (07:30→21:00)
[2020-09-15] MEDS: AMOX/CLAV 200 MG/5 ML ORAL SUSP (100 ML BTL) PO SCH ×2 (09:00→21:00)
[2020-09-15] MEDS: SOD FERRIC GLUC COMPLX/SUCROSE 125 MG in NA CHLORIDE 0.9% 100 ML IV SCH (09:00)
[2020-09-15] MEDS: HEPARIN 5000 UNIT/ML 1 ML VIAL SQ SCH ×2 (09:00→21:00)
[2020-09-15] MEDS: ATORVASTATIN 10 MG TAB PO SCH (09:00)
--- NOTE | 2020-09-15 09:11 | P.PN ---
Subjective Date of Service: 09/15/20 Primary Care Provider: Darin Stearns Chief Complaint: acute on chronic renal insufficiency, UTI Subjective: No new changes, Doing well Physical Examination - Vital Signs Temperature: 97.7 F Blood Pressure: 116/59 Pulse: 68 Respirations: 16 Pulse Ox (%): 88 - Studies Medications List Reviewed: Yes Assessment & Plan Discharge Plan: Home Plan to discharge in: 24 Hours Physician Review Additional Text: Physical exam: Patient alert, cooperative. No significant distress noted at bedside. 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 Continue with dialysis. Overall patient improved. No complaints noted. Patient to have radiology assisted kidney biopsy on Monday. Social work to work on outpatient hemodialysis to be done in [place], [place]. This is where the patient lives. Will discuss with social and political studies professor further on plan of care for continue hemodialysis as an outpatient. Will also discuss with nephrology. Plan of care discussed with patient and daughter who was at present at bedside. UTI, urine culture positive for enterobacter: Continue with Augmentin. Will treat for 7 days. Hypertension: Blood pressure well controlled. Continue blood pressure medication. Blood pressure controlled. Diabetes mellitus type 2: Hold Actos. Will check A1c. Continue Accu-Cheks. Sliding scale in place. Will determine what patient will require at discharge. Hypothyroidism: Continue medication Hyperlipidemia: Continue medication Recent sacral fracture: Patient plans to do outpatient physical therapy. Patient able to ambulate well. No need for home health/physical therapy. This was discussed in detail with daughter. Anemia of chronic disease: Continue with Epogen. Maintain hemoglobin above 7.0. May require blood transfusion if hemoglobin below 7.0. Time Spent Managing Pts Care (In Minutes): 55
[2020-09-15 11:42] LABS: HBsAG Nonreactive (Nonreactive)
[2020-09-15] MEDS: EPOETIN ALFA 10,000 UNIT/ML VIAL IV SCH (20:00)
[2020-09-15] MEDS: CODEINE 30MG/APAP 300MG TAB PO PRN (21:21)
[2020-09-15] MEDS: NIFEDIPINE XL 30 MG TABLET PO SCH (21:21)
[2020-09-15] MEDS ORDERED: cloNIDine HCL 0.1 MG TAB PO PRN (22:08)
[2020-09-15 23:55] LABS: Vitamin D 1,25-Dihydroxy Total 13 pg/mL (18-72); Vitamin D,1,25-OH2, D2 <8 pg/mL
--- NOTE | 2020-09-16 00:58 | PN ---
Date of Progress Note: 09/15/2020 Chief Complaint: Acute on chronic kidney injury, urinary tract infection. History Of Present Illness: The patient is an 85-year-old woman with past medical history of diabeti c kidney disease stage 4, chronic kidney disease. The patient was following with alternative medicine practitioner in [facility]. The patient was previously found to have renal artery stenosis and had a stent placement. Sh dmitriy has diabetic kidney disease, hypertension, hyperlipidemia. During this admission, she was found to have urinary tract infection and was started on antibiotics. Recently, GFR dropped from 28 to 12. The patient was initiated on dialysis during this admission. [place] is pending to rule out vasculitis. Review of Systems: Denies fever or chills. Physical Examination: General: The patient is not in acute distress. Lungs: Diminished breath sounds at bases. Heart: S1, S2. Abdomen: Soft, benign. Extremities: No edema. Impression And Plan: 1.Acute on chronic kidney injury, likely the patient has advanced chronic kidney disease. Workup is pending for possible rapidly progressive glomerulonephritis. 2.The patient has urinary tract infection. Continue antibiotics. Re-evaluate urine culture. 3.The patient has significant hyperazotemia. Does not have uremic symptoms. Continue dialysis for metabolic clearance. The patient underwent tunneled dialysis catheter placement during this admissio n. 4.Hypertension. Adjust blood pressure medication for optimal blood pressure control. RORO/MODL Voice ID: [id number] Report ID: [id number]
[2020-09-16] MEDS: ACETAMINOPHEN 500 MG TAB PO PRN ×2 (05:38→20:52)
[2020-09-16] MEDS: LEVOTHYROXINE SOD 0.05 MG TABLET PO SCH (05:38)
[2020-09-16 06:15] LABS: Absolute Lymphocytes (CBC) 0.9 K/uL (0.7-4.9); Basophils % 0.4 % (0-1.3); Hematocrit 25.5 % (36.0-45.0); Lymphocytes % 9.5 % (15.3-44.8); MPV 9.6 fL (7.6-11.3); RBC Red Blood Cell Count 2.81 M/uL (3.86-4.86)
[2020-09-16] MEDS: INSULIN -REGULAR HUMAN 50 UNIT/0.5 ML ML SQ SCH ×4 (07:30→20:45)
[2020-09-16] MEDS ORDERED: DESMOPRESSIN 20 MCG in NA CHLORIDE 0.9% 50 ML IV ONE (08:30)
[2020-09-16] MEDS: AMOX/CLAV 200 MG/5 ML ORAL SUSP (100 ML BTL) PO SCH ×2 (09:00→20:43)
[2020-09-16] MEDS ORDERED: DESMOPRESSIN 4 MCG/ML AMP IV ONE (09:00)
[2020-09-16] MEDS: HEPARIN 5000 UNIT/ML 1 ML VIAL SQ SCH ×2 (09:00→20:49)
[2020-09-16] MEDS ORDERED: FENTANYL CITR 100 MCG/2 ML ONE (09:07)
[2020-09-16] MEDS ORDERED: MIDAZOLAM HCL 2 MG/2 ML INJ ONE (09:07)
[2020-09-16] MEDS ORDERED: NA CHLORIDE 0.9% 500 ML ONE (10:12)
[2020-09-16] MEDS: SOD FERRIC GLUC COMPLX/SUCROSE 125 MG in NA CHLORIDE 0.9% 100 ML IV SCH (12:21)
[2020-09-16 13:00] LABS: Blood Morphology Comment NOT SEEN (NOT SEEN); Platelet Estimate DECR
--- NOTE | 2020-09-16 13:08 | P.PN ---
Subjective Date of Service: 09/16/20 Primary Care Provider: Darin Stearns Chief Complaint: acute on chronic renal insufficiency, UTI Subjective: Doing well Physical Examination - Vital Signs Temperature: 97.5 F Blood Pressure: 158/69 Pulse: 61 Respirations: 16 Pulse Ox (%): 92 - Studies Medications List Reviewed: Yes Assessment & Plan Discharge Plan: Home Plan to discharge in: 24 Hours Physician Review Additional Text: Physical exam: Patient alert, cooperative. No significant distress noted at bedside. 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 She is without significant pain. Doing well at this time. Care discussed with patient and family. Plan of care also discuss with nephrology. Will try to arrange for outpatient dialysis starting as early as Monday in [place] where she is from. Family also wants her to have home health arrange. Will discuss with director of social media marketing. Anticipate possible discharge tomorrow after dialysis. Anticipate no need for dialysis between Monday and Monday or Monday when she is to start in [place]. Will confirm with nephrology. UTI, urine culture positive for enterobacter: Continue with Augmentin. Will treat for 7 days. Hypertension: Blood pressure stable. Continue blood pressure medication. Diabetes mellitus type 2: Restart Actos. Will check A1c. Continue Accu-Cheks. Sliding scale in place. Will determine what patient will require at discharge. Hypothyroidism: Continue medication Hyperlipidemia: Continue medication Recent sacral fracture: Patient plans to do outpatient physical therapy. Patient able to ambulate well. No need for inpatient physical therapy. This was discussed in detail with daughter. Anemia of chronic disease: Continue with Epogen. Maintain hemoglobin above 7.0. May require blood transfusion if hemoglobin below 7.0. History of renal artery stenosis: Overall stable. Will monitor closely. Time Spent Managing Pts Care (In Minutes): 55
--- NOTE | 2020-09-16 13:40 | RAD REPORT ---
EXAM DESCRIPTION: CT - Renal Biopsy CT - 09/16/2020 11:17 am CLINICAL HISTORY: Diabetic renal disease stage IV. Acute renal disease TECHNIQUE: The risks, benefits alternatives to the procedure were explained to the patient and infor med consent obtained Conscious sedation was performed for approximately 30 minutes. A nurse monitored vital signs througho ut the examination 2 milligrams Versed and 75 micrograms fentanyl administered intravenously All CT scans are performed using dose optimization technique as appropriate and may include automated exposure control or mA/KV adjustment according to patient size. The skin, subcutaneous tissue and musculature were anesthetized Lidocaine. Under CT guidance a 17 gauge needle was placed into the posterior aspect of the lower pole of the lef t kidney. An 18 gauge needle was then placed through this and three 2 centimeter core specimens [place] and given to pathology The post biopsy images do not demonstrate a hematoma. Patient experienced no immediate complication IMPRESSION: Core biopsies of the left kidney
[2020-09-16] MEDS: ATORVASTATIN 10 MG TAB PO SCH (15:59)
[2020-09-16] MEDS: PIOGLITAZONE 15 MG TAB PO SCH (15:59)
[2020-09-16] MEDS: FOLIC ACID 1 MG TABLET PO SCH (16:00)
[2020-09-16 17:56] LABS: HIV AG/AB 4TH GEN Non-reactive (Non-reactive)
[2020-09-16] MEDS: NIFEDIPINE XL 30 MG TABLET PO SCH (20:42)
[2020-09-16 21:44] LABS: Albumin, (SPE) 2.7 g/dL (3.8-4.8); Alpha-1-Globulins 0.4 g/dL (0.2-0.3); Alpha-2-Globulins 0.7 g/dL (0.5-0.9); Gamma Globulins 0.7 g/dL (0.8-1.7); INTERPRETATION REPORT
--- NOTE | 2020-09-17 01:44 | PN ---
Date of Progress Note: 09/16/2020 Subjective: The patient was admitted with acute kidney injury. The patient is known to have hypertension, renal artery stenosis, kidney function declined. For that reason, the patient was initiated on renal replacement therapy. Kidney biopsy was done today. Diuresis and ARB were discontinued. Objective: Vital Signs: When I saw the patient, the patient is lying in bed. Blood pressure 126/75, pulse of 68, afebrile. Chest: Clear to auscultation. Heart: S1, S2. Regular. Abdomen: Soft, nontender. Extremities: No edema. Neurological: Alert and oriented x3. No focal. No tremor. Laboratory Data: WBC 9.3, H and H 8.6/25.5, Sodium 140, potassium 4, bicarb 28. BUN 24, creatinine 2.2, GFR of 21. This is post dialysis. Calcium 8.1, magnesium 2. Serum protein electrophoresis, acute inflammation. No M spike. Serology was negative still. RANDY pending. Hepatitis was negative. Current Medications: The patient on include, 1. Augmentin. 2. IV iron. 3. Heparin. 4. Epogen. 5. Clonidine 0.1 b.i.d. 6. Atorvastatin. 7. Nifedipine 30. 8. Folic acid. 9. DDAVP. 10. Actos. 11. Codeine. Assessment And Plan: 1. Acute kidney injury on chronic kidney disease, advanced, to rule out any autoimmune disease/renal vascular. Keep holding Lasix and ARB. We will follow up biopsy. We will arrange for the dialysis tomorrow. 2. Hypertension, not controlled. I am going to go ahead and start the patient on beta-cristian. Plan to taper the clonidine if her blood pressure allows. 3. Keep holding LYDIA inhibitor or ARB and Lasix for the time being. 4. Renal artery stenosis status post stenting. We will monitor. 5. Anemia of chronic kidney disease. Continue BAILEY. time spent examined the patient face to face s discussed with the patient placed order discussing the case with other customer care team coach including nurses , discussing with other specialist include a hospitalist 45 min MAKEDA/SANDRA Voice ID: [id number] Report ID: [id number] MYRTLE
[2020-09-17] MEDS: LEVOTHYROXINE SOD 0.05 MG TABLET PO SCH (05:17)
[2020-09-17 06:48] LABS: Absolute Lymphocytes (CBC) 1.2 K/uL (0.7-4.9); Basophils % 0.5 % (0-1.3); Hematocrit 24.7 % (36.0-45.0); Lymphocytes % 13.9 % (15.3-44.8); MPV 9.7 fL (7.6-11.3)
[2020-09-17] MEDS: INSULIN -REGULAR HUMAN 50 UNIT/0.5 ML ML SQ SCH ×3 (07:30→16:00)
[2020-09-17] MEDS: PIOGLITAZONE 15 MG TAB PO SCH (08:46)
[2020-09-17] MEDS: SOD FERRIC GLUC COMPLX/SUCROSE 125 MG in NA CHLORIDE 0.9% 100 ML IV SCH (08:46)
[2020-09-17] MEDS: ATORVASTATIN 10 MG TAB PO SCH (08:47)
[2020-09-17] MEDS: FOLIC ACID 1 MG TABLET PO SCH (08:47)
[2020-09-17] MEDS: HEPARIN 5000 UNIT/ML 1 ML VIAL SQ SCH (08:48)
[2020-09-17] MEDS: AMOX/CLAV 200 MG/5 ML ORAL SUSP (100 ML BTL) PO SCH (08:53)
[2020-09-17] MEDS ORDERED: carvediloL 6.25 MG TAB PO SCH (09:00)
[2020-09-17] MEDS ORDERED: PIOGLITAZONE HCL 45 MG PO SCH (09:00)
[2020-09-17] MEDS ORDERED: NA CHLORIDE 0.9% 1,000 ML IV SCH (09:00)
--- NOTE | 2020-09-17 09:05 | RAD REPORT ---
EXAM DESCRIPTION: RAD - Chest Pa And Lat (2 Views) - 09/17/2020 7:34 am CLINICAL HISTORY: Desaturation/need for O2 Chest pain. COMPARISON: Chest Single View dated 09/14/2020; Abdomen 1 View (KUB) dated 09/13/2020hest Single View dated 09/14/2020; Abdomen 1 View (KUB) dated 09/13/2020 FINDINGS: Mild interstitial prominence is present throughout the lungs. Minimal right and small left pleural effusion is seen with left basilar lung infiltrate noted. The heart is normal in size. No di splaced fractures. Right-sided dialysis catheter is in place with its tip in the SVC. IMPRESSION: Mild interstitial prominence with bilateral pleural effusions likely represents volume o verload/ CHF.
--- NOTE | 2020-09-17 09:32 | RAD REPORT ---
EXAM DESCRIPTION: CT - Abdomen Angio - 09/17/2020 8:28 am CLINICAL HISTORY: Chest pain radiating to the back. Renal art. sten COMPARISON: Pelvis Angio dated 09/17/2020 TECHNIQUE: CT angiography of the abdomen and pelvis was performed with MIPs. All CT scans are performed using dose optimization technique as appropriate and may include automated exposure control or mA/KV adjustment according to patient size. FINDINGS: Small bilateral pleural effusions are noted with atelectasis in both lung bases. Aortic atherosclerosis is present with significant atherosclerotic plaquing involving both common lenny ac arteries. Significant atheromatous plaquing is present at the origin of the celiac axis, SMA and MARIAH. Flow with in the these vessels is patent. Extent is noted at the level of the right renal artery ostium. A small accessory left renal artery is present. There is mild narrowing of the ostium of the left renal artery. Flow is identified in both renal arteries. Atrophy of right kidney is noted. Benign cysts are present bilaterally No aggressive solid organ abnormality detected. The gallbladder is absent with mild dilatation of the intrahepatic biliary tree.No bowel obstruction, free fluid or abscess. IMPRESSION: Right renal artery stent is present which appears patent.Mild atheromatous narrowing of the left renal artery ostium is present. Heavy atheromatous plaquing at the origin of the visceral arteries is present. Moderate atrophy right kidney.
[2020-09-17 09:55] LABS: Blood Morphology Comment NOT SEEN (NOT SEEN); Platelet Estimate ADEQ
[2020-09-17] MEDS ORDERED: FUROSEMIDE 40 MG TABLET PO SCH (09:57)
[2020-09-17 10:47] VITALS: O2SAT 97
--- NOTE | 2020-09-17 11:04 | RAD REPORT ---
EXAM DESCRIPTION: CT - Pelvis Angio - 09/17/2020 8:29 am CLINICAL HISTORY: Chest pain radiating to the back. Renal art. sten COMPARISON: Pelvis Angio dated 09/17/2020 TECHNIQUE: CT angiography of the abdomen and pelvis was performed with MIPs. All CT scans are performed using dose optimization technique as appropriate and may include automated exposure control or mA/KV adjustment according to patient size. FINDINGS: Small bilateral pleural effusions are noted with atelectasis in both lung bases. Aortic atherosclerosis is present with significant atherosclerotic plaquing involving both common lenny ac arteries. Significant atheromatous plaquing is present at the origin of the celiac axis, SMA and MARIAH. Flow with in the these vessels is patent. Extent is noted at the level of the right renal artery ostium. A small accessory left renal artery is present. There is mild narrowing of the ostium of the left renal artery. Flow is identified in both renal arteries. Atrophy of right kidney is noted. Benign cysts are present bilaterally No aggressive solid organ abnormality detected. The gallbladder is absent with mild dilatation of the intrahepatic biliary tree. No bowel obstruction, free fluid or abscess. IMPRESSION: Right renal artery stent is present which appears patent. Mild atheromatous narrowing of the left renal artery ostium is present. Heavy atheromatous plaquing at the origin of the visceral arteries is present. Moderate atrophy right kidney.
--- NOTE | 2020-09-17 11:13 | P.DS ---
Admission Date: 09/11/20 Discharge Date: 09/17/20 Primary Care Provider: Darin Stearns Disposition: ROUTINE DISCHARGE Discharge Condition: GOOD Reason for Admission: acute on chronic renal insufficiency, UTI Consultations: Nephrology-Dr. Alatorre Procedures: COVID: Negative Renal US: COMPARISON: None. FINDINGS: The right kidney measures 8 cm with an increased echotexture. The left kidney measures 10 cm with an increased echotexture. A 2.6 centimeters cyst Hydronephrosis is not seen. The bladder is decompressed and poorly evaluated IMPRESSION: Increased renal echotexture consistent with parenchymal disease Surgery: Dated procedure: 09/14/2020 Surgeon: Dr. Gallo Rodriguez Preop diagnosis: End-stage renal disease Postop diagnosis: Same Primary procedure: Placement of right jugular tunneled hemodialysis catheter Secondary procedure: Interpretation of fluoroscopy Other procedure: Right echo ultrasound Complications: None CT Guided Renal Biopsy: TECHNIQUE: The risks, benefits alternatives to the procedure were explained to the patient and informed consent obtained Conscious sedation was performed for approximately 30 minutes. A nurse monitored vital signs throughout the examination 2 milligrams Versed and 75 micrograms fentanyl administered intravenously All CT scans are performed using dose optimization technique as appropriate and may include automated exposure control or mA/KV adjustment according to patient size. The skin, subcutaneous tissue and musculature were anesthetized Lidocaine. Under CT guidance a 17 gauge needle was placed into the posterior aspect of the lower pole of the left kidney. An 18 gauge needle was then placed through this and three 2 centimeter core specimens obtained and given to pathology The post biopsy images do not demonstrate a hematoma. Patient experienced no immediate complication IMPRESSION: Core biopsies of the left kidney CT scan: FINDINGS: Small bilateral pleural effusions are noted with atelectasis in both lung bases. Aortic atherosclerosis is present with significant atherosclerotic plaquing involving both common iliac arteries. Significant atheromatous plaquing is present at the origin of the celiac axis, SMA and MARIAH. Flow within the these vessels is patent. Extent is noted at the level of the right renal artery ostium. A small accessory left renal artery is present. There is mild narrowing of the ostium of the left renal artery. Flow is identified in both renal arteries. Atrophy of right kidney is noted. Benign cysts are present bilaterally No aggressive solid organ abnormality detected. The gallbladder is absent with mild dilatation of the intrahepatic biliary tree. No bowel obstruction, free fluid or abscess. IMPRESSION: Right renal artery stent is present which appears patent. Mild atheromatous narrowing of the left renal artery ostium is present. Heavy atheromatous plaquing at the origin of the visceral arteries is present. Moderate atrophy right kidney. Pathology: Sent out to Outside lab Follow up CXR: FINDINGS: Mild interstitial prominence is present throughout the lungs. Minimal right and small left pleural effusion is seen with left basilar lung infiltrate noted. The heart is normal in size. No displaced fractures. Right-sided dialysis catheter is in place with its tip in the SVC. IMPRESSION: Mild interstitial prominence with bilateral pleural effusions likely represents volume overload/ CHF. Medical Problem List: Acute on chronic renal disease stage 5 now with end-stage renal disease on hemodialysis UTI, urine culture positive for enterobacter Chronic diastolic CHF Hypertension Renal artery stenosis with history of right renal artery stent, CT showing patency of stent with mild narrowing of the left renal artery Diabetes mellitus type 2 Hyperlipidemia Hypothyroidism History of bilateral sacral, ischial ramus and tuberosity fractures Anemia of chronic disease Brief History of Present Illness: 85 yo female with DM, HTN, HLD, PVD w/ femoral artery stent, h/o renal artery stent, hypothyroidism, and bilateral sacral, ischial ramus and tuberosity fractures here today for acute on chronic renal insufficiency and UTI. Last summer she was admitted to the hospital for E.coli UTI and sepsis and at this time had a GFR 28. On Monday, she had a GFR of 17. At 11pm last night she took advil for her back pain, and then began to have nausea and vomiting. She reports abdominal pain, poor appetite, weakness, and headache. She denies fever, dysuria, frequency, urgency, hematuria, diarrhea and constipation. GFR now 12. BUN 79. Cr 3.64. Glucose 220. Hemoglobin 9.1, Hematocrit 27.9. WBC 15.6. alk phos 203.urine positive for 1+ leukocytes, 2+ blood, 10-20 WBCs, bacteria. Renal ultrasound - no hydronephrosis, increased renal echotexture with parenchymal disease. Patient admitted for further evaluation and treatment. Hospital Course: Patient presented with acute on chronic renal disease stage 5. Patient was admitted for worsening renal function. Nephrology was consulted. Renal ultrasound showed chronic renal disease. Medications were adjusted without improvement. Patient previously on Arb inhibitor and HCTZ. Nephrology recommended to initiate hemodialysis. Hemodialysis catheter was placed by surgery. This was done without complication. Nephrology also recommended renal biopsy to rule out autoimmune process. This was done without complication. At discharge patient stable on hemodialysis. Arrangements for outpatient hemodialy sis has been arranged. Patient will start hemodialysis in [place] on Monday at 2:15 pm. She will continue with hemodialysis every Monday, Monday and Monday. Patient will follow up with her cash sales audit clerk there. Nephrology will need to follow up on a recent renal biopsy. Patient will continue with a 1500 cc per day fluid restriction and low-salt diet. Recommend to monitor her weight daily. Recommend follow up with nephrology in 1-2 weeks. Patient also found to have UTI. Urine culture was positive for enterobacter. Patient was treated in the course of her stay. Patient given 7 day course of treatment. No need for further antibiotics at discharge. UTI prevention will be provided. Suspect underlying chronic diastolic CHF. Patient was given IV fluids due to her renal dysfunction. Patient takes Lasix at home. Patient will be evaluated for possible home oxygen at discharge. If oxygen remains at the low 88% on room air then home oxygen will be arranged. Otherwise patient will continue with 1500 cc per day fluid restriction and low-salt diet. Patient will continue with Lasix 40 mg daily. Recommend to follow up with cardiology as an outpatient for echocardiogram to confirm. Recommend follow up with cardiology to further monitor and adjust. Patient will likely require further cardiac evaluation to further address. Patient with hypertension. Medications have been adjusted during the course of her stay. Patient will no longer take Arb inhibitor with hydrochlorothiazide. Patient currently on Nifedipine and carvedilol. At discharge she will continue with Nifedipine ER 30 mg at bedtime and carvedilol 6.25 mg 1 pill twice daily. Recommend to maintain blood pressure less than 130/80. Further adjustment can be done by her PCP or nephrology. Patient with diabetes mellitus type 2. This appears stable. Hemoglobin A1c 8.5. At discharge she will continue with Actos 45 mg daily. Recommend to maintain blood sugar less than 140 fasting and less than 200 after meals. Further adjustment can be done by her PCP. Patient will continue with 2000 ADA diet. Patient with hypothyroidism. This appears stable. At discharge she will continue with levothyroxine 50 mcg daily. Patient with hyperlipidemia. At discharge she will continue with pravastatin 10 mg daily. Patient with history of bilateral sacral, ischial ramus and tuberosity fractures. Patient able to ambulate appropriately. Fall precautions in place. Patient with history of renal artery stenosis with history of right renal artery stent. CT scan perform showed patency of stent. Mild narrowing of the left renal artery noted. Recommend follow up with cardiology to further monitor and address. At discharge she will continue with aspirin 81 mg daily. Patient may require further cardiac evaluation to further address. Patient with anemia of chronic disease. This appears stable. At discharge recommend recheck CBC in 2-4 weeks to monitor her progress. This can be further monitored and addressed by nephrology as an outpatient. Vital Signs/Physical Exam: Temp Pulse Resp BP Pulse Ox 98.2 F 68 17 172/72 H 90 L 09/17/20 08:00 09/17/20 08:47 09/17/20 08:00 09/17/20 08:47 09/17/20 08:00 General: Alert, In no apparent distress, Oriented x3, Cooperative HEENT: Atraumatic Neck: Supple Respiratory: Crackles/rales (Minimal crackles to the left side) Cardiovascular: Normal pulses, Regular rate/rhythm Gastrointestinal: Normal bowel sounds, Soft and benign, Non-distended, No tenderness, No masses, No rebound, No guarding Neurological: Normal speech, Normal strength at 5/5 x4 extr, Normal tone, Normal affect Laboratory Data at Discharge: WBC 8.60 K/uL (4.3-10.9) 09/17/20 05:57 Hgb 8.3 g/dL (12.0-15.0) L 09/17/20 05:57 Hct 24.7 % (36.0-45.0) L 09/17/20 05:57 Plt Count 128 K/uL (152-406) L 09/17/20 05:57 PT 9.9 SECONDS (9.5-12.5) 09/14/20 08:51 INR 0.86 09/14/20 08:51 Sodium 140 mmol/L (136-145) 09/17/20 05:57 Potassium 4.0 mmol/L (3.5-5.1) 09/17/20 05:57 BUN 30 mg/dL (7-18) H 09/17/20 05:57 Creatinine 2.68 mg/dL (0.55-1.3) H 09/17/20 05:57 Glucose 182 mg/dL (74-106) H 09/17/20 05:57 Uric Acid 7.8 mg/dL (2.6-6.0) H 09/12/20 06:19 Magnesium 2.0 mg/dL (1.8-2.4) 09/17/20 05:57 Total Bilirubin 0.2 mg/dL (0.2-1.0) 09/14/20 05:42 AST 10 U/L (15-37) L 09/14/20 05:42 ALT 11 U/L (12-78) L 09/14/20 05:42 Alkaline Phosphatase 139 U/L (45-117) H 09/14/20 05:42 Amylase 15 U/L (25-115) L 09/14/20 05:42 Lipase 16 U/L (73-393) L 09/14/20 05:42 Home Medications: Nifedipine [Nifedipine ER] 30 mg PO BEDTIME 09/12/20 Pioglitazone HCl 45 mg PO DAILY 09/12/20 Pravastatin Sodium 10 mg PO DAILY 09/12/20 Sodium Bicarbonate 650 mg PO BID 09/12/20 Aspirin [Aspirin EC 81 MG] 81 mg PO DAILY #90 tablet. 09/17/20 Furosemide [Lasix] 40 mg PO DAILY #30 tab 09/17/20 Levothyroxine Sodium [Levothyroxine] 50 mcg PO DAILY #30 09/17/20 carvediloL [Coreg*] 6.25 mg PO BID #60 tab 09/17/20 New Medications: Aspirin [Aspirin EC 81 MG] 81 mg PO DAILY #90 tablet. carvediloL [Coreg*] 6.25 mg PO BID #60 tab Furosemide [Lasix] 40 mg PO DAILY #30 tab Levothyroxine Sodium [Levothyroxine] 50 mcg PO DAILY #30 Physician Discharge Instructions: Patient presented with acute on chronic renal disease stage 5. Patient was admitted for worsening renal function. Nephrology was consulted. Renal ultrasound showed chronic renal disease. Medications were adjusted without improvement. Patient previously on Arb inhibitor and HCTZ. Nephrology recommended to initiate hemodialysis. Hemodialysis catheter was placed by surgery. This was done without complication. Nephrology also recommended renal biopsy to rule out autoimmune process. This was done without complication. At discharge patient stable on hemodialysis. Arrangements for outpatient hemodialysis has been arranged. Patient will start hemodialysis in [place] on Monday at 2:15 pm. She will continue with hemodialysis every Monday, Monday and Monday. Patient will follow up with her cash sales audit clerk there. Nephrology will need to follow up on a recent renal biopsy. Patient will continue with a 1500 cc per day fluid restriction and low-salt diet. Recommend to monitor her weight daily. Recommend follow up with nephrology in 1-2 weeks. Patient also found to have UTI. Urine culture was positive for enterobacter. Patient was treated in the course of her stay. Patient given 7 day course of treatment. No need for further antibiotics at discharge. UTI prevention will be provided. Suspect underlying chronic diastolic CHF. Patient was given IV fluids due to her renal dysfunction. Patient takes Lasix at home. Patient will be evaluated for possible home oxygen at discharge. If oxygen remains at the low 88% on room air then home oxygen will be arranged. Otherwise patient will continue with 1500 cc per day fluid restriction and low-salt diet. Patient will continue with Lasix 40 mg daily. Recommend to follow up with cardiology as an outpatient for echocardiogram to confirm. Recommend follow up with cardiology to further monitor and adjust. Patient will likely require further cardiac evaluation to further address. Patient with hypertension. Medications have been adjusted during the course of her stay. Patient will no longer take Arb inhibitor with hydrochlorothiazide. Patient currently on Nifedipine and carvedilol. At discharge she will continue with Nifedipine ER 30 mg at bedtime and carvedilol 6.25 mg 1 pill twice daily. Recommend to maintain blood pressure less than 130/80. Further adjustment can be done by her PCP or nephrology. Patient with diabetes mellitus type 2. This appears stable. Hemoglobin A1c 8.5. At discharge she will continue with Actos 45 mg daily. Recommend to maintain blood sugar less than 140 fasting and less than 200 after meals. Further adjustment can be done by her PCP. Patient will continue with 2000 ADA diet. Patient with hypothyroidism. This appears stable. At discharge she will continue with levothyroxine 50 mcg daily. Patient with hyperlipidemia. At discharge she will continue with pravastatin 10 mg daily. Patient with history of bilateral sacral, ischial ramus and tuberosity fractures. Patient able to ambulate appropriately. Fall precautions in place. Patient with history of renal artery stenosis with history of right renal artery stent. CT scan perform showed patency of stent. Mild narrowing of the left renal artery noted. Recommend follow up with cardiology to further monitor and address. At discharge she will continue with aspirin 81 mg daily. Patient may require further cardiac evaluation to further address. Patient with anemia of chronic disease. This appears stable. At discharge recommend recheck CBC in 2-4 weeks to monitor her progress. This can be further monitored and addressed by nephrology as an outpatient. Diet: Renal Activity: Fall precautions Followup: Carol Westbrook MD [ACTIVE - CAN ADMIT] - OOT,OOT [Primary Care Provider] - Time spent managing pt's care (in minutes): 55
[2020-09-17] MEDS: EPOETIN ALFA 10,000 UNIT/ML VIAL IV SCH (16:45)
[2020-09-17] MEDS ORDERED: ONDANSETRON 4 MG/2 ML VIAL IV PRN (17:42)
[2020-09-17 18:03] VITALS: BP 171/90; TEMP 97.8
[2020-09-17] MEDS ORDERED: ONDANSETRON 4 MG/2 ML VIAL ONE (18:05)
--- NOTE | 2020-09-17 22:51 | P.PN ---
Subjective Date of Service: 09/18/20 Primary Care Provider: [place] Chief Complaint: acute on chronic renal insufficiency, UTI Subjective: No new changes Physical Examination - Vital Signs Temperature: 97.8 F Blood Pressure: 171/90 Pulse: 58 Respirations: 16 Pulse Ox (%): 92 - Physical Exam General: In no apparent distress HEENT: Atraumatic, Normocephalic Neck: Without JVD or thyroid abnormality Respiratory: Clear to auscultation bilaterally Cardiovascular: No murmurs Musculoskeletal: No swelling - Studies Medications List Reviewed: Yes Assessment And Plan - Plan # ESRD on HD History of renal artery stenosis with history of right renal artery stent. Cont HD 3x/wk Outpt HD placement in [place] completed Renal diet # UTI Received antibiotics Monitor # Htn, CHF Cont cardioprudent meds # Anemia Monitor H/H # DM2 Mngt per primary team # Dispo Ok to dc today Physician Review Additional Text: Physical exam: Patient alert, cooperative. No significant distress noted at bedside. 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 She is without significant pain. Doing well at this time. Care discussed with patient and family. Plan of care also discuss with nephrology. Will try to arrange for outpatient dialysis starting as early as Monday in [place] where she is from. Family also wants her to have home health arrange. Will discuss with licensed clinical social worker. Anticipate possible discharge tomorrow after dialysis. Anticipate no need for dialysis between Monday and Monday or Monday when she is to start in [place]. Will confirm with nephrology. UTI, urine culture positive for enterobacter: Continue with Augmentin. Will treat for 7 days. Hypertension: Blood pressure stable. Continue blood pressure medication. Diabetes mellitus type 2: Restart Actos. Will check A1c. Continue Accu-Cheks. Sliding scale in place. Will determine what patient will require at discharge. Hypothyroidism: Continue medication Hyperlipidemia: Continue medication Recent sacral fracture: Patient plans to do outpatient physical therapy. Patient able to ambulate well. No need for inpatient physical therapy. This was discussed in detail with daughter. Anemia of chronic disease: Continue with Epogen. Maintain hemoglobin above 7.0. May require blood transfusion if hemoglobin below 7.0. History of renal artery stenosis: Overall stable. Will monitor closely.
--- NOTE | 2020-11-04 11:33 | CON ---
Date of Consultation: 09/13/2020 Diagnosis: Renal failure, need for hemodialysis catheter. History Of Present Illness: This is the case of an 85-year-old patient with small multiple medical p roblems. I was consulted to put a dialysis catheter temporary since the patient will need hemodialys is. Past Medical History: Includes diabetes, hypertension, peripheral vascular disease, renal failure, d iabetes. Past Surgical History: Includes femoral artery stent placement, large bowel and cecal volvulus surge ry, bilateral inguinal hernia repair, back surgery. Social History: She smoked about 9 cigarettes a day. She does not drink alcohol. Family History: Hypertension and diabetes. Review of Systems: No shortness of breath. No chest pain. No fever. Ten points otherwise unremarkable. Physical Examination: General: The patient is awake, alert. Neck: Supple. Chest: Bilateral breath sounds. Abdomen: Soft and depressible. Extremities: Good capillary refill. Laboratory Data: Blood work shows hemoglobin of 7.6 with a WBC count of 15. INR is pending. Assessment: This is an 85-year-old patient with renal failure, needs new hemodialysis. The benefits , alternatives, and risks were fully explained of hemodialysis placement, which include, but not limi arjun to infection, bleeding, damage to adjacent structures, anesthesia complication, pneumothorax, hem othorax, pericardiac tamponade, DVT, PE. They also understand this is a temporary catheter _hemodialysis for more than several weeks, she was advised to see her vascular surgeon for peripheral access and if she is not using hemodialysis catheter, she was advised to remove it as soon as sendy Hamilton/SANDRA Voice ID: [id number] Report ID: [id number]
== END 2020-09-17 19:22 | disposition home or self-care (01) | DRG 674 ==
LOC: ER 18:07 → OBSVTOIN 20:47 → ERHOLD 20:47 → INTOOBSV 20:47 → 2ND 22:48
PROVIDERS: ADMIT Hospitalist; ATTEND Family Medicine
PROC: 02HV33Z Insertion of Infusion Device into Superior Vena Cava, Percutaneous Approach (ICD-10-PCS; 2020-09-14)
PROC: B5181ZA Fluoroscopy of Superior Vena Cava using Low Osmolar Contrast, Guidance (ICD-10-PCS; 2020-09-14)
PROC: 30233N1 Transfusion of Nonautologous Red Blood Cells into Peripheral Vein, Percutaneous Approach (ICD-10-PCS; 2020-09-14)
PROC: 0JH63XZ Insertion of Tunneled Vascular Access Device into Chest Subcutaneous Tissue and Fascia, Percutaneous Approach (ICD-10-PCS; principal; 2020-09-14 11:00)
PROC: 0T913ZX Drainage of Left Kidney, Percutaneous Approach, Diagnostic (ICD-10-PCS; 2020-09-16)
PROC: 5A1D70Z Performance of Urinary Filtration, Intermittent, Less than 6 Hours Per Day (ICD-10-PCS; 2020-09-17)
DX: N17.9 Acute kidney failure, unspecified (principal); N39.0 Urinary tract infection, site not specified; I50.32 Chronic diastolic (congestive) heart failure; I13.2 Hypertensive heart and chronic kidney disease with heart failure and with stage 5 chronic kidney disease, or end stage renal disease; N18.6 End stage renal disease; F17.210 Nicotine dependence, cigarettes, uncomplicated; E11.22 Type 2 diabetes mellitus with diabetic chronic kidney disease; E78.49 Other hyperlipidemia; E11.51 Type 2 diabetes mellitus with diabetic peripheral angiopathy without gangrene; E03.8 Other specified hypothyroidism; I70.1 Atherosclerosis of renal artery; D63.8 Anemia in other chronic diseases classified elsewhere; B96.89 Other specified bacterial agents as the cause of diseases classified elsewhere; S32.10XD Unspecified fracture of sacrum, subsequent encounter for fracture with routine healing; Z71.6 Tobacco abuse counseling; Z79.899 Other long term (current) drug therapy; Z79.890 Hormone replacement therapy; Z90.49 Acquired absence of other specified parts of digestive tract; Z79.82 Long term (current) use of aspirin
CPT/HCPCS: 36415; 71045; 71046; 72191; 74018; 74175; 76000; 76770; 80048; 80053; 80076; 81003; 81015; 82150; 82550; 82570; 82607; 82652; 82728; 82746; 82947; 83036; 83520; 83540; 83690; 83735; 83970; 84132; 84156; 84165; 84300; 84439; 84443; 84466; 84550; 85014; 85018; 85025; 85610; 86021; 86038; 86160; 86225; 86317; 86334; 86705; 86706; 86803; 86850; 86900; 86901; 87077; 87086; 87088; 87186; 87340; 87389; 88300; 90935; 96361; 96365; 96375; 99285; C1752; J0696; J1644; J2001; J2250; J2270; J2405; J2597; J2704; J2916; J3010; J7030; J7040; P9016; Q5105; Q5106; Q9967; U0003

== ENCOUNTER 2021-04-18 15:56 | Emergency (ER) | payer OTHER ==
[2021-04-18] MEDS ORDERED: MORPHINE 4 MG/ML SYR ONE (16:51)
[2021-04-18] MEDS ORDERED: ONDANSETRON 4 MG/2 ML VIAL ONE ×2 (16:51→17:32)
--- NOTE | 2021-04-18 17:19 | RAD REPORT ---
EXAM DESCRIPTION: CTSpine Lumbar Wo Con04/18/2021 4:55 pm CLINICAL HISTORY: Back injury with back pain status post fall COMPARISON: August 2020 TECHNIQUE: Computed axial tomography lumbar spine was obtained with coronal and sagittal reconstruct ion. All CT scans are performed using dose optimization technique as appropriate and may include automated exposure control or mA/KV adjustment according to patient size. FINDINGS: Cement has been placed into an old compression fracture of the L1 vertebral body. No acute fracture. No dislocation Spondylosis involves the lumbar spine resulting in marked spinal stenosis L3-4 and L4-5. Moderate jonathan tral spinal stenosis L5-S1 IMPRESSION: Negative for a lumbar fracture.
--- NOTE | 2021-04-18 17:26 | RAD REPORT ---
EXAM DESCRIPTION: CT - Pelvis Wo Cont - 04/18/2021 4:55 pm CLINICAL HISTORY: Left hip pain status post fall TECHNIQUE: Computed axial tomography of the pelvis was obtained. Coronal and sagittal reconstruction performed All CT scans are performed using dose optimization technique as appropriate and may include automated exposure control or mA/KV adjustment according to patient size. FINDINGS: Comminuted fracture greater trochanter and intertrochanteric left femur. Varus angulation present at the fracture site. No dislocation Old left and right pubic bone fractures. Air is present within the lumen and wall of the bladder IMPRESSION: Left femoral fracture Emphysematous cystitis
[2021-04-18] MEDS ORDERED: FENTANYL CITR 100 MCG/2 ML ONE (18:09)
[2021-04-18 18:13] LABS: Absolute Lymphocytes (CBC) 0.5 K/uL (0.7-4.9); Basophils % 0.4 % (0-1.3); Hematocrit 33.4 % (36.0-45.0); Lymphocytes % 4.5 % (15.3-44.8); MPV 9.8 fL (7.6-11.3)
[2021-04-18 18:19] LABS: Protime INR 0.95
[2021-04-18 18:28] LABS: Albumin 2.9 g/dL (3.4-5.0); Bilirubin Total 0.5 mg/dL (0.2-1.0); Potassium 3.8 mmol/L (3.5-5.1); Protein, Total 6.6 g/dL (6.4-8.2)
--- NOTE | 2021-04-18 18:48 | RAD REPORT ---
EXAM DESCRIPTION: Carlita Single View04/18/2021 6:10 pm CLINICAL HISTORY: Preop for hip surgery COMPARISON: August 2020 FINDINGS: The lungs appear clear of acute infiltrate. The heart is upper limits normal size IMPRESSION: No acute abnormalities displayed
--- NOTE | 2021-04-18 19:23 | EDPHYS ---
Physician Documentation [facility] Name: Sasha Pate Age: 85 yrs Sex: Female : 1935 Arrival Date: 04/18/2021 Time: 15:57 Bed 24 Private MD: ED Physician Eleuterio Mendez HPI: 04/18 16:56 This 85 yrs old Female presents to ER via Wheelchair with complaints of Fall pm1 Injury. 16:56 Details of fall: The patient fell from an upright position, while standing. Onset: The pm1 symptoms/episode began/occurred yesterday. Associated injuries: The patient sustained left hip, painful injury. Severity of symptoms: in the emergency department the symptoms are unchanged. The patient has been recently seen by a physician: with similar presenting complaints, CT scan was done, No acute fractures found. Patient reports fall injury to left hip area onset yesterday as she was getting out of bed. Patient was seen at another ER yesterday where she had a CT scan performed. According to CT results she had no acute fractures but old fractures present. Patient presenting to the ER today for further reevaluation of her continued left hip pain. Historical: - Allergies: 16:14 No Known Allergies; ld1 - Home Meds: 16:09 acetaminophen-codeine 300-30 mg oral tab 1 tab every 8 hours for pain [Active]; ld1 pioglitazone 45 mg oral tab 1 tab once daily [Active]; pravastatin 10 mg oral tab 1 tab once daily [Active]; clopidogrel 75 mg oral tab 1 tab once daily [Active]; furosemide 20 mg Oral tab 1 tab 2 times per day [Active]; levothyroxine 25 mcg tab 1 tab once daily [Active]; Januvia 100 mg oral tab 1 tab once daily [Active]; carvedilol 6.25 mg oral tab 1 tab 2 times per day [Active]; sodium bicarbonate 650 mg Oral tab 325 mg twice a day [Active]; lisinopril 5 mg Oral tab 1 tab once daily [Active]; - PMHx: 16:09 Hyperthyroidism; Diabetes mellitus; PVD; Hypertension; Diabetes - NIDDM; ld1 Hypothyroidism; renal insufficiency; Sacral fractures; 16:19 L UA fistula; lp1 - PSHx: 16:09 vascular stents; Cholecystectomy; knee surgery; ld1 - Immunization history: Last tetanus immunization:. - Social history:: Smoking status: Patient reports the use of cigarette tobacco products, smokes one-half pack cigarettes per day. ROS: 16:56 Constitutional: Negative for fever, chills, and weight loss, Cardiovascular: Negative pm1 for chest pain, palpitations, and edema, Respiratory: Negative for shortness of breath, cough, wheezing, and pleuritic chest pain, Abdomen/GI: Negative for abdominal pain, nausea, vomiting, diarrhea, and constipation, Back: Negative for injury and pain. 16:56 Skin: Negative for injury, rash, and discoloration, Neuro: Negative for headache, weakness, numbness, tingling, and seizure. 16:56 MS/extremity: Positive for pain, tenderness, of the left hip, Negative for contusion, laceration. 16:56 All other systems are negative. Exam: 16:56 Constitutional: This is a well developed, well nourished patient who is awake, alert, pm1 and in no acute distress. Head/Face: Normocephalic, atraumatic. 16:56 Skin: Warm, dry with normal turgor. Normal color with no rashes, no lesions, and no evidence of cellulitis. 16:56 Neck: Exam negative for acute changes, C-spine: vertebral tenderness, is not appreciated, ROM/movement: is normal. 16:56 Cardiovascular: Exam negative for acute changes, Rate: normal, Rhythm: regular, Pulses: no pulse deficits are appreciated, Edema: is not appreciated. 16:56 Respiratory: Exam negative for acute changes, respiratory distress, shortness of breath, Breath sounds: are clear throughout. 16:56 Abdomen/GI: Exam negative for acute changes, Inspection: abdomen appears normal, Palpation: abdomen is soft and non-tender, in all quadrants. 16:56 Back: Exam negative for acute changes, vertebral tenderness, is not appreciated, muscle spasm, is not present. 16:56 Musculoskeletal/extremity: Exam is negative for acute changes, Extremities: noted in the left hip: the right leg and left leg Sensation intact. 16:56 Neuro: Exam negative for acute changes, Orientation: is normal, Mentation: is normal, Motor: moves all fours. Vital Signs: 16:19 Weight 58.06 kg (R); Height 5 ft. 6 in. (167.64 cm); Pain 10/10; lp1 16:40 BP 126 / 61; Pulse 78; Resp 18; Temp 98.6(O); Pulse Ox 100% on R/A; Pain 10/10; ld1 18:20 BP 142 / 69; Pulse 68; Resp 19; Pulse Ox 94% on R/A; ld1 19:15 BP 176 / 52; Pulse 70; Resp 14; Pulse Ox 97% on R/A; lp1 20:00 BP 138 / 60; Pulse 68; Resp 19; Temp 97.7(O); Pulse Ox 93% on R/A; lp1 16:19 Body Mass Index 20.66 (58.06 kg, 167.64 cm) lp1 Amy Coma Score: 16:21 Eye Response: spontaneous(4). Verbal Response: oriented(5). Motor Response: obeys lp1 commands(6). Total: 15. Trauma Score (Adult): 16:21 Eye Response: spontaneous(1); Verbal Response: oriented(1); Motor Response: obeys lp1 commands(2); Systolic BP: > 89 mm Hg(4); Respiratory Rate: 10 to 29 per min(4); Amy Score: 15; Trauma Score: 12 MDM: 16:05 Patient medically screened. pm1 18:35 Data reviewed: vital signs. pm1 18:50 Physician consultation: Jama Gordillo MD was called at 18:49, was contacted at pm1 18:49, regarding consult, after a discussion of the case, a recommendation for transfer for higher level of care is made, No fracture table present with unknown delivery time. Dr. Gordillo recommended transfer. 18:54 Counseling: I had a detailed discussion with the patient and/or guardian regarding: the pm1 need to transfer to another facility, Due to lack of proper equipment. 04/18 17:35 Order name: CBC with Diff pm1 04/18 17:35 Order name: CMP pm1 04/18 17:36 Order name: CBC with Automated Diff; Complete Time: 21:18 EDMS 04/18 17:36 Order name: Comprehensive Metabolic Panel; Complete Time: 18:34 EDMS 04/18 17:37 Order name: PT-INR pm1 04/18 16:23 Order name: CT Lumbar Spine Wo Con; Complete Time: 17:27 pm1 04/18 16:23 Order name: CT Pelvis wo Cont; Complete Time: 17:27 pm1 04/18 17:36 Order name: Chest Single View XRAY; Complete Time: 19:00 pm1 04/18 17:38 Order name: Protime (+INR); Complete Time: 18:34 EDMS 04/18 18:29 Order name: CBC Smear Scan; Complete Time: 21:18 EDMS 04/18 18:39 Order name: SARS-COV-2 RT PCR; Complete Time: 19:48 EDMS 04/18 16:24 Order name: IV Saline Lock; Complete Time: 16:38 pm1 04/18 17:36 Order name: EKG; Complete Time: 17:37 pm1 04/18 17:36 Order name: EKG - Nurse/Tech; Complete Time: 18:19 pm1 Administered Medications: 16:40 Drug: morphine 4 mg Route: IVP; Site: right antecubital; ld1 16:44 Follow up: Response: No adverse reaction ld1 16:40 Drug: Zofran (Ondansetron) 4 mg Route: IVP; Site: right antecubital; ld1 16:44 Follow up: Response: No adverse reaction ld1 17:10 Drug: Zofran (Ondansetron) 4 mg Route: IVP; Site: right antecubital; ld1 17:13 Follow up: Response: No adverse reaction ld1 17:36 CANCELLED (Physician Discretion): Dilaudid (HYDROmorphone) 0.5 mg IVP once; RASS on pm1 ADMIN: Combtv4, Very Agttd3, Agttd2, Rstlss1, AlertClm0, Drwsy-1, Lt Sdtn-2, Mod Sdtn-3, Dp Sdtn-4, UnArsble-5 18:00 Drug: fentaNYL (PF) 25 mcg Route: IVP; Site: right antecubital; ld1 18:19 Follow up: Response: No adverse reaction ld1 Disposition: 04/19 05:40 Co-signature as Attending Physician, Eleuterio Mendez MD I agree with the assessment and kdr plan of care. Disposition Summary: 04/18/21 19:22 Transfer Ordered Transfer Location: [facility] pm1 Reason: Higher level of care pm1 Condition: Stable pm1 Problem: new pm1 Symptoms: have improved pm1 Accepting Physician: VERO04/18/21 20:41) lp1 Diagnosis - Comminuted fracture of greater trochanter and intertrochanteric left femur pm1 Forms: - Medication Reconciliation Form pm1 - SBAR form pm1 Signatures: Dispatcher [employer] EDEleuterio Corral MD MD kdr Pena, Laura, RN RN lp1 Kemar Hernandez, DIRECTOR OF CORPORATE REAL ESTATE DIRECTOR OF CORPORATE REAL ESTATE pm1 Shawna Fernandes, RN RN ld1 Corrections: (The following items were deleted from the chart) 04/18 16:15 16:09 PMHx: Hyperlipidemia; ld1 ld1 16:15 16:09 PMHx: UTI; ld1 ld1 16:15 16:09 PMHx: Sepsis; ld1 ld1 16:42 16:40 Social history: Smoking status: Patient denies any tobacco usage or history of. ld1 ld1 17:36 17:36 Dilaudid (HYDROmorphone) 0.5 mg IVP once; RASS on ADMIN: Combtv4, Very Agttd3, pm1 Agttd2, Rstlss1, AlertClm0, Drwsy-1, Lt Sdtn-2, Mod Sdtn-3, Dp Sdtn-4, UnArsble-5 ordered. pm1 18:39 17:38 CORONAVIRUS+MRMarioLAB.BRZ ordered. EDMS EDMS 20:41 19:22 pm1 lp1
--- NOTE | 2021-04-18 19:23 | ER ---
Nurse's Notes [facility] Name: Sasha Pate Age: 85 yrs Sex: Female : 1935 Arrival Date: 04/18/2021 Time: 15:57 Bed 24 Private MD: Diagnosis: Comminuted fracture of greater trochanter and intertrochanteric left femur Presentation: 04/18 16:15 Chief complaint: Patient states: Reports falling yesterday at 0700 when attempting to lp1 stand up off of toilet, hx of orthostatic hypotension; Denies head trauma; unable to bear weight to left leg, point to left groin pain; Seen at hospital in [place] yesterday and told no acute pelvic fractures noted and discharged home. Care prior to arrival: None. Mechanism of Injury: Fall from standing position. Trauma event details: Injury occurred in the [facility] Injury occurred: at home. Injury occurred: April 17, 2021 Injury occurred at: 07:00. 16:15 Acuity: DEMI 2 lp1 16:15 Method Of Arrival: Wheelchair lp1 16:19 Coronavirus screen: At this time, the client does not indicate any symptoms associated lp1 with coronavirus-19. Ebola Screen: No symptoms or risks identified at this time. Risk Assessment: Do you want to hurt yourself or someone else? Patient reports no desire to harm self or others. Onset of symptoms was April 17, 2021 at 07:00. 19:32 Initial Sepsis Screen: Does the patient meet any 2 criteria? No. Patient's initial lp1 sepsis screen is negative. Does the patient have a suspected source of infection? No. Patient's initial sepsis screen is negative. Historical: - Allergies: 16:14 No Known Allergies; ld1 - Home Meds: 16:09 acetaminophen-codeine 300-30 mg oral tab 1 tab every 8 hours for pain [Active]; ld1 pioglitazone 45 mg oral tab 1 tab once daily [Active]; pravastatin 10 mg oral tab 1 tab once daily [Active]; clopidogrel 75 mg oral tab 1 tab once daily [Active]; furosemide 20 mg Oral tab 1 tab 2 times per day [Active]; levothyroxine 25 mcg tab 1 tab once daily [Active]; Januvia 100 mg oral tab 1 tab once daily [Active]; carvedilol 6.25 mg oral tab 1 tab 2 times per day [Active]; sodium bicarbonate 650 mg Oral tab 325 mg twice a day [Active]; lisinopril 5 mg Oral tab 1 tab once daily [Active]; - PMHx: 16:09 Hyperthyroidism; Diabetes mellitus; PVD; Hypertension; Diabetes - NIDDM; ld1 Hypothyroidism; renal insufficiency; Sacral fractures; 16:19 L UA fistula; lp1 - PSHx: 16:09 vascular stents; Cholecystectomy; knee surgery; ld1 - Immunization history: Last tetanus immunization:. - Social history:: Smoking status: Patient reports the use of cigarette tobacco products, smokes one-half pack cigarettes per day. Screenin:40 Abuse screen: Denies threats or abuse. Denies injuries from another. Nutritional ld1 screening: No deficits noted. Tuberculosis screening: No symptoms or risk factors identified. Fall Risk Fall in past 12 months (25 points). Gait- Weak (10 pts.). Mental Status- Oriented to own ability (0 pts). Total Ayoub Fall Scale indicates Low Risk Score (25-44 pts). Fall prevention measures have been instituted. Side Rails Up X 2 Placed close to Nursing Station Frequent Obs/Assesments occuring Family Present and informed to notify staff if they need to leave bedside As available Patient and Family Educated on Fall Prevention Program and strategies. Primary Survey: 16:20 NO uncontrolled hemorrhage observed. A: The patient is alert. Airway: patent, No lp1 supplemental oxygen in use on arrival. Breathing/Chest: Respiratory effort: spontaneous, unlabored, Chest inspection: symmetrical rise and fall of the chest. Circulation: Pulses: palpable right dorsalis pedis artery and left dorsalis pedis artery. Skin color: pink. Disability Alert. Exposure/Environment: Obvious injury(ies) are noted at this time: Pain and unable to weight bear to left leg. Assessment: 16:40 General: Appears in no apparent distress. uncomfortable, Behavior is calm, cooperative, ld1 appropriate for age. Pain: Complains of pain in left quadriceps Pain does not radiate. Pain currently is 10 out of 10 on a pain scale. Quality of pain is described as throbbing, Pain began 2-3 days ago. Is continuous. Neuro: Level of Consciousness is awake, alert, obeys commands, Oriented to person, place, time, situation. Cardiovascular: Capillary refill < 3 seconds Patient's skin is warm and dry. Respiratory: Airway is patent Respiratory effort is even, unlabored, Respiratory pattern is regular, symmetrical. GI: Abdomen is flat, non-distended. : No signs and/or symptoms were reported regarding the genitourinary system. EENT: No signs and/or symptoms were reported regarding the EENT system. Derm: No signs and/or symptoms reported regarding the dermatologic system. Musculoskeletal: Reports pain in left leg. 18:20 Reassessment: Patient appears in no apparent distress at this time. No changes from ld1 previously documented assessment. Patient and/or family updated on plan of care and expected duration. Pain level reassessed. Patient is alert/active/playful, equal unlabored respirations, skin warm/dry/pink. Pt c/o N/V. Notified ERP. 19:15 Reassessment: Assisted patient to bedpan, small amount of urine voided; vomited x1, lp1 reports no need for nausea medication at this time, will reevaluate. 19:31 Reassessment: Patient and family member at bedside aware of plan of care for transfer. lp1 Neuro: Level of Consciousness is awake, alert, obeys commands, Oriented to person, place, time, situation. Cardiovascular: Patient's skin is warm and dry. Dialysis shunt: in the left bicep. Respiratory: Respiratory effort is even, unlabored. Derm: Skin is intact, Skin is dry, Skin is normal. 20:15 Reassessment: report given to REYMUNDO Monson for patient transfer to [facility] to 1 ER. 20:20 Reassessment: EMS at bedside for transfer. lp1 Vital Signs: 16:19 Weight 58.06 kg (R); Height 5 ft. 6 in. (167.64 cm); Pain 10/10; lp1 16:40 BP 126 / 61; Pulse 78; Resp 18; Temp 98.6(O); Pulse Ox 100% on R/A; Pain 10/10; ld1 18:20 BP 142 / 69; Pulse 68; Resp 19; Pulse Ox 94% on R/A; ld1 19:15 BP 176 / 52; Pulse 70; Resp 14; Pulse Ox 97% on R/A; lp1 20:00 BP 138 / 60; Pulse 68; Resp 19; Temp 97.7(O); Pulse Ox 93% on R/A; lp1 16:19 Body Mass Index 20.66 (58.06 kg, 167.64 cm) lp1 [place] Coma Score: 16:21 Eye Response: spontaneous(4). Verbal Response: oriented(5). Motor Response: obeys lp1 commands(6). Total: 15. Trauma Score (Adult): 16:21 Eye Response: spontaneous(1); Verbal Response: oriented(1); Motor Response: obeys lp1 commands(2); Systolic BP: > 89 mm Hg(4); Respiratory Rate: 10 to 29 per min(4); [place] Score: 15; Trauma Score: 12 ED Course: 15:57 Patient arrived in ED. as 16:01 [facility] pm1 16:01 Eleuterio Mendez MD is Attending Physician. pm1 16:01 Shawna Fernandes RN is Primary Nurse. ld1 16:19 Triage completed. lp1 16:20 Arm band placed on. lp1 16:38 Inserted saline lock: 20 gauge in right antecubital area, using aseptic technique. gd 16:40 Patient has correct armband on for positive identification. Placed in gown. Bed in low ld1 position. Call light in reach. Side rails up X2. property assessment monitor on. Pulse ox on. NIBP on. Door closed. Noise minimized. Warm blanket given. 16:40 No provider procedures requiring assistance completed. ld1 16:55 CT Lumbar Spine Wo Con In Process Unspecified. EDMS 16:55 CT Pelvis wo Cont In Process Unspecified. EDMS 18:11 Chest Single View XRAY In Process Unspecified. EDMS 20:30 Patient transferred, IV remains in place. lp1 Administered Medications: 16:40 Drug: morphine 4 mg Route: IVP; Site: right antecubital; ld1 16:44 Follow up: Response: No adverse reaction ld1 16:40 Drug: Zofran (Ondansetron) 4 mg Route: IVP; Site: right antecubital; ld1 16:44 Follow up: Response: No adverse reaction ld1 17:10 Drug: Zofran (Ondansetron) 4 mg Route: IVP; Site: right antecubital; ld1 17:13 Follow up: Response: No adverse reaction ld1 17:36 CANCELLED (Physician Discretion): Dilaudid (HYDROmorphone) 0.5 mg IVP once; RASS on pm1 ADMIN: Combtv4, Very Agttd3, Agttd2, Rstlss1, AlertClm0, Drwsy-1, Lt Sdtn-2, Mod Sdtn-3, Dp Sdtn-4, UnArsble-5 18:00 Drug: fentaNYL (PF) 25 mcg Route: IVP; Site: right antecubital; ld1 18:19 Follow up: Response: No adverse reaction ld1 Output: 20:00 Urine: 150ml (Voided); Total: 150ml. lp1 Outcome: 19:22 ER care complete, transfer ordered by MD. pm1 20:30 Transferred by ground EMS to [facility], Transfer form completed. X-rays sent lp1 w/ patient. 20:30 Condition: stable 20:30 Instructed on the need for transfer. 20:41 Patient left the ED. lp1 Signatures: Dispatcher [employer] EDMS Maria Elena Rodriguez Laura, RN RN lp1 Kemar Hernandez, ZANDER DAM OPERATOR pm1 Shawna Fernandes, REYMUNDO RN ld1 Jj Allan Corrections: (The following items were deleted from the chart) 16:15 16:09 PMHx: Hyperlipidemia; ld1 ld1 16:15 16:09 PMHx: UTI; ld1 ld1 16:15 16:09 PMHx: Sepsis; ld1 ld1 16:42 16:40 Social history: Smoking status: Patient denies any tobacco usage or history of. ld1 ld1 18:39 18:19 CORONAVIRUS+MRMarioLABMAURICIO drawn and sent. 1 EDMS 20:41 20:00 BP 138 / 60; Pulse 68bpm; Resp 19bpm; Pulse Ox 93% RA; lp1 lp1
[2021-04-18 20:40] LABS: Blood Morphology Comment NOTED (NOT SEEN); Platelet Estimate ADEQ; White Blood Cell Scan OK (OK)
[2021-04-18 20:48] VITALS: TEMP 98.6
[2021-04-18 20:53] VITALS: BP 138/60; O2SAT 93
--- NOTE | 2021-04-19 08:59 | EKG ---
Test Date: 2021-04-18 Test Time: 17:48:02 Cartridge Feeder: ANH MEASUREMENT RESULTS: Intervals: Rate: 64 LA: 138 QRSD: 66 QT: 418 QTc: 431 [place]: P: 89 LA: 138 QRS: -5 T: 4 INTERPRETIVE STATEMENTS: Normal sinus rhythm Normal ECG No previous ECG available for comparison Electronically Signed On 04-19-21 08:57:20 CDT by Jose Rafael Corrales
== END 2021-04-18 20:41 | disposition short-term general hospital (02) ==
LOC: ER 15:56
DX: S72.112A Displaced fracture of greater trochanter of left femur, initial encounter for closed fracture (principal); S72.142A Displaced intertrochanteric fracture of left femur, initial encounter for closed fracture; W06.XXXA Fall from bed, initial encounter; I10 Essential (primary) hypertension; E11.9 Type 2 diabetes mellitus without complications; I73.9 Peripheral vascular disease, unspecified; F17.210 Nicotine dependence, cigarettes, uncomplicated; Z20.822 Contact with and (suspected) exposure to COVID-19
CPT/HCPCS: 93005; 85025; 36415; 85610; 80053; 72131; 72192; 71045; 96375; 96374; 99285; U0003; J3010; J2405 ×2